=== PATIENT | male | born 1975 | race Two or more races ===

== ENCOUNTER 2025-06-26 19:50 | Inpatient (IN) | payer OTHER, SELFPAY ==
[2025-06-26] VITALS (11 sets, daily range): BP systolic 87–135; BP diastolic 46–73; PULSE 68–85; RESP 7–20; TEMP 36.6–36.8; O2SAT 93–100; BMI 24.3
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
--- NOTE | 2025-06-26 20:20 | XR_ITS ---
EXAMINATION: AP chest single view TECHNIQUE: AP portable upright chest single view Date and time: June 26, 2025, 2032 hours INDICATIONS: Shortness of breath today. FINDINGS: Normal heart size Moderate vascular congestion. Suspicious for subtle edema at the lung bases No lobar pneumonia Moderate osteopenia IMPRESSION: Suspicious for early heart failure
--- NOTE | 2025-06-26 20:20 | XR_ITS ---
Examination: CT cervical spine without contrast 2-D sagittal reconstructions 2-D coronal reconstructions 3-D reconstructions. Exam date and time: June 26, 2025, 2102 hours INDICATIONS: Neck pain today CTDI:vol (mGy) 13.46 DLP: (mGycm) 320 Technique: Multiple 2 mm axial sections of the cervical spine have been obtained. The coronal and sagittal reconstructions have been obtained. 3-D reconstructions have been obtained. Low dose protocols were performed. One or more of the following dose reduction techniques were used; automated exposure control, adjustment of the mA and/or KV according to patient size, use of iterative reconstruction technique. Findings: Axial sections demonstrate intact base of the skull. C1 exhibit satisfactory relationship to the odontoid. No acute cervical vertebral body fracture seen. Alignment posterior spinous processes satisfactory. 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 Multiple subcentimeter osteolytic lesions throughout all vertebral bodies, focal areas of osteopenia included in the differential, early osteolytic metastatic disease not excluded Recommend elective MRI cervical spine follow-up pre and postcontrast
--- NOTE | 2025-06-26 20:20 | XR_ITS ---
Examination: CT chest, without intravenous contrast. CT abdomen, without intravenous contrast. CT pelvis, without intravenous contrast. 2-D sagittal and coronal reconstructions. 3-D reconstructions. Date and time of exam: June 26, 2025, 2119 hours INDICATIONS: Altered mental status, chest and abdominal pain today CTDI vol (mgy) 9.83 DLP (MGycm) 697 Technique: Multiple CT images, 3.0 mm slice thickness, obtained chest, abdomen, pelvis, with the high-resolution 64 slice scanner.. Sagittal and coronal 2-D reconstructions are obtained. 3-D reconstructions Low dose protocols were performed. One or more of the following dose reduction techniques were used; automated exposure control, adjustment of the mA and/or KV according to patient size, use of iterative reconstruction technique. Findings: No thoracic aortic aneurysmal dilatation Pulmonary artery segments are not enlarged. No paratracheal tracheobronchial or bronchopulmonary adenopathy. 4 mm pulmonary nodule right upper lobe image 122 No pneumonia or pulmonary edema or pleural disease Old fracture 11th rib left posteriorly No visualized liver or splenic lesion Gallbladder is not visualized No pancreatic mass No renal or ureteral calculi Aorta normal size No bowel obstruction Normal appendix No diverticulitis Moderate air and stool in the rectum No prostatomegaly Urinary bladder wall shows prominent thickening Prominent osteopenia, chronic compression L1 IMPRESSION: No pneumonia or pulmonary edema 4 mm pulmonary nodule right upper lobe, with the studies baseline recommend 6-month follow-up CT chest without contrast No renal or ureteral calculi Normal appendix No bowel obstruction or diverticulitis Urinary bladder wall shows marked thickening, differential would include cystitis, bladder carcinoma not excluded, recommend urology consultation
--- NOTE | 2025-06-26 20:20 | XR_ITS ---
Examination: CT maxillofacial, without intravenous contrast. 2-D sagittal reconstructions. 3-D reconstructions. Date and time of exam: June 26, 2025, 2100 hours INDICATIONS: Altered mental status with left facial numbness today CTDI: vol (mGy): 13.7 DLP: (mGycm): 287 Technique: Multiple axial images of maxillofacial region, 3.0 mm slice thickness. 2-D sagittal and coronal reconstructions. 3-D reconstructions. Low dose protocols were performed. One or more of the following dose reduction techniques were used; automated exposure control, adjustment of the mA and/or KV according to patient size, use of iterative reconstruction technique. Findings: Frontal bone frontal sinuses intact Old right nasal bone fracture (Are intact No depression zygomatic arches Pterygoid plates maxilla and the mandible are intact Symmetrical oropharynx nasopharynx There is considerable patient motion which degrades scan image quality No soft tissue abscess IMPRESSION: No facial fracture No soft tissue abscess As clinically warranted, brain MRI follow-up would best assess for demyelinating disease, acute ischemic change.
--- NOTE | 2025-06-26 20:20 | EKG_ITS ---
[facility] Test Date: 2025-06-26 Pat Name: EJ MAURER Department: Room: - Gender: Male [employer]: : 1975 Requested By: Raza Lawler Order Number: [id number] Reading MD: Raza Lawler Measurements Intervals [place] Rate: 75 P: 58 CT: 166 QRS: -3 QRSD: 91 T: 43 QT: 426 QTc: 477 Interpretive Statements SINUS RHYTHM POSSIBLE RIGHT VENTRICULAR CONDUCTION DELAY [RSR (QR) IN V1/V2] No previous ECG available for comparison /store/S0/[id number].pdf
--- NOTE | 2025-06-26 20:20 | XR_ITS ---
Examination: CT brain head without contrast. 2-D sagittal coronal reconstructions Date and time of exam: June 26, 2025, 2058 hours INDICATIONS: Altered mental status headache today CTDI: vol (mGy): 48.1 DLP: (mGycm): 988 Technique: Multiple CT axial sections of the brain have been obtained, 5 mm slice thickness. Contrast has not been administered. 2-D sagittal, coronal reconstructions have been obtained Low dose protocols were performed. One or more of the following dose reduction techniques were used; automated exposure control, adjustment of the mA and/or KV according to patient size, use of iterative reconstruction technique. Findings: No significant ventricular enlargement. Intra-axial or extra-axial hemorrhage density is not seen. No mass effect or midline shift Basal cisterns are not remarkable. Fourth ventricle is midline. Cranial vault intact. Impression: Negative for acute hemorrhage, mass effect or midline shift Advise clinical correlation and follow-up accordingly
--- NOTE | 2025-06-26 20:30 | PC.NURSE ---
RECIEVED REPORT FROM VICKY HANSON RN AT 2020
[2025-06-26 20:39] LABS: Lactate (Lactic Acid) 2.5 mMol/L (0.4-2.0)
[2025-06-26 20:44] LABS: Base Excess 2 (-3-3); HCO3 26 mEq/L (20-26); Inspired Oxygen, FIO2 21 %; O2 Saturation 95 % (91-98); PCO2 37 mmHg (32.0-48.0); PO2 69 mmHg (83-108); pH, Arterial 7.45 (7.35-7.45)
[2025-06-26 20:44] LABS: Collection Type, Urine Clean Catch; Squamous Epithelial Cell,Urine 0 /hpf (0-5)
[2025-06-26 20:46] LABS: Allen Test Performed/OK; Puncture Site Right Radial
[2025-06-26] MEDS: ONDANSETRON INJ 2 MG/ML INJ 2 ML 4 MG IVP (20:47)
[2025-06-26 20:48] LABS: Basophils # (Auto) 0.0 Thou/mm3 (0.0-0.2); Basophils % (Auto) 0 % (0-2.5); Bilirubin,Urine Negative (Negative); Blood,Urine 1+ (Negative); Clarity,Urine Clear (Clear/Hazy); Color,Urine Colorless (Lt Yel-Yel); Culture Indicated,Urine Not Indicated; Eosinophils # (Auto) 0.0 Thou/mm3 (0.0-0.5); Eosinophils % (Auto) 0 % (0-10); Glucose, Urine Negative (Negative); Hemoglobin 13.1 g/dL (13.5-16.0); Ketones,Urine Negative (Negative); Leukocyte Esterase,Urine Negative (Negative); Mean Corpuscular Volume 79 fL (80-100); Nitrite,Urine Negative (Negative); Nucleated Red Blood Cell # 0.00 Thou/mm3 (0.00-0.00); Nucleated Red Blood Cell % 0 /100 WBC (0); PH,Urine 7.0 (5.0-7.0); Protein,Urine Negative (Neg - Trace); RBC,Urine 1 /hpf (0-3); Specific Gravity,Urine 1.003 (1.001-1.035); Urobilinogen,Urine Negative mg/dL (0.0-1.0); WBC,Urine < 1 /hpf (0-5)
[2025-06-26] MEDS: SODIUM CHLORIDE 0.9% 1000 ML 1,000 ML 999 ML IV (20:48)
[2025-06-26 21:02] LABS: Ammonia 20 uMol/L (11-32)
[2025-06-26 21:13] LABS: Hematocrit 34.1 % (41.0-53.0); Immature Granulocytes Auto 0.06 Thou/mm3 (0.00-0.00); Lymphocytes # (Auto) 0.5 Thou/mm3 (1.0-4.8); Lymphocytes % (Auto) 3 % (10-50); Mean Corpuscular HGB Conc 38.4 g/dl (31.0-37.0); Mean Corpuscular Hemoglobin 30.5 pg (25.0-35.0); Monocytes # (Auto) 1.2 Thou/mm3 (0.0-0.8); Monocytes % (Auto) 8 % (0-12); Neutrophils # (Auto) 13.6 Thou/mm3 (1.8-7.7); Neutrophils % (Auto) 88 % (37-80); Platelet Count 211 Thou/mm3 (140-440); RDW Standard Deviation 36.6 fL (35.1-43.9); Red Blood Count 4.30 Miln/mm3 (4.50-5.90); White Blood Count 15.4 Thou/mm3 (3.8-10.6)
[2025-06-26 21:19] LABS: Sed Rate (ESR) 1 mm/hr (0-20)
[2025-06-26] MEDS: levETIRAcetam INJ 100 MG/ML VIAL 5ML 2000 MG IVP (21:34)
[2025-06-26 21:54] LABS: Beta Hydroxybutyrate 0.2 mmol/L (<0.6)
[2025-06-26 22:07] LABS: Amphetamine/Methamp Scrn,U Negative (Negative); Barbiturate Screen,Urine Negative (Negative); Benzodiazepines Screen,Urine Negative (Negative); Benzoylecgonine Screen, Ur Negative (Negative); Fentanyl Screen,Urine Negative (Negative); Opiate Screen,Urine Negative (Negative); THC Screen,Urine Negative (Negative)
[2025-06-26 22:17] LABS: Glucose Estimated Average 85 mg/dL (80-131); Hemoglobin A1C 4.6 % Hgb (4.8-6.0)
[2025-06-26 22:36] LABS: Acetaminophen < 2.0 mcg/mL (10.0-20.0); Alanine Aminotransferase 20 U/L (10-49); Albumin, Serum 4.0 gm/dL (3.5-5.0); Albumin/Globulin Ratio 2.2 (1.2-2.2); Alcohol, Blood Medical < 3.0 mg/dL (0-10.0); Alkaline Phosphatase 67 U/L (46-116); Anion Gap 7 (7-16); Aspartate Amino Transferase 61 U/L (0-34); BUN/Creatinine Ratio 9 Ratio (12-20); Bilirubin,Direct 0.6 mg/dL (0.0-0.3); Bilirubin,Total 1.7 mg/dL (0.3-1.2); Blood Urea Nitrogen 6 mg/dL (9-23); Calcium 8.6 mg/dL (8.3-10.6); Calcium (Corrected) 8.6 mg/dL (8.5-10.1); Carbon Dioxide 24.2 mMol/L (20.0-31.0); Chloride 90 mMol/L (98-107); Creatinine (Component) 0.7 mg/dL (0.6-1.3); Estimated Creatinine Clearance 122.1 mL/min (>60); Globulin 1.8 gm/dL (2.3-3.5); Glucose 103 mg/dL (74-106); Lipase 20 U/L (12-53); Magnesium 1.6 mg/dL (1.6-2.6); Osmolality,Calculated 241 (275-295); Potassium 3.8 mMol/L (3.4-5.1); Procalcitonin 0.14 ng/ml (0.0-0.49); Salicylate < 3.0 mg/dL; Sodium 121 mMol/L (136-145); Thyroid Stimulating Hormone 1.14 uIU/mL (0.55-4.78); Total Protein 5.8 gm/dL (5.7-8.2); Troponin I < 0.020 ng/mL (0.0-0.045); eGFR > 60 See Note
[2025-06-26 22:55] LABS: B-Type Natriuretic Peptide 303 pg/mL (0-100)
[2025-06-26 23:14] LABS: C-Reactive Protein < 0.5 mg/dL (0.0-0.9); Creatine Kinase 2249 U/L (34-171)
[2025-06-26 23:41] LABS: Reflex Lactate? Y
[2025-06-27] VITALS (54 sets, daily range): BP systolic 72–136; BP diastolic 43–102; PULSE 56–181; RESP 3–96; TEMP 36.6–37.3; O2SAT 75–100; BMI 24.3; BMI 24.2
[2025-06-27 00:23] LABS: Lactic Acid, 3 HR 1.7 mMol/L (0.4-2.0)
[2025-06-27] MEDS: SODIUM CHLORIDE 0.9% 1000 ML 1,000 ML 999 ML IV (00:30)
[2025-06-27 00:52] LABS: Albumin, Serum 4.1 gm/dL (3.5-5.0); Anion Gap 9 (7-16); BUN/Creatinine Ratio 9 Ratio (12-20); Blood Urea Nitrogen 6 mg/dL (9-23); Calcium 8.9 mg/dL (8.3-10.6); Calcium (Corrected) 8.9 mg/dL (8.5-10.1); Carbon Dioxide 23.1 mMol/L (20.0-31.0); Chloride 97 mMol/L (98-107); Creatinine (Component) 0.7 mg/dL (0.6-1.3); Estimated Creatinine Clearance 122.1 mL/min (>60); Glucose 97 mg/dL (74-106); Osmolality,Calculated 256 (275-295); Phosphorous 3.9 mg/dL (2.4-5.1); Potassium 4.3 mMol/L (3.4-5.1); Sodium 129 mMol/L (136-145); eGFR > 60 See Note
[2025-06-27] MEDS: DESMOPRESSIN ACETATE 4 MCG/ML VIAL IV (01:00)
--- NOTE | 2025-06-27 01:22 | ESCONSULT_ITS ---
HPI Data of Consult Requesting Physician: Radha Miranda MD Admitting Provider: Radha Miranda MD Attending Provider: Radha Miranda MD Primary Care Provider: Palak Mak[facility] Consult Narrative Reason for consult: AMS and seizures History of present illness: This patient is a 49-year-old male with past medical history of schizophrenia on fluphenazine was brought in by EMS from detention( [facility]) on 06/26/25 with chief complaint of altered mental status with drooling and urine incontinence with flaccid weakness in upper extremities and post ictal confusion. His baseline AO x 3. Per RN who works in detention reported that patient fell and they found water on floor. Patient was not responding to painful stimuli was exhibiting right and left upper extremity flaccid weakness associated with drooling and urine incontinence. He was nonverbal and appeared in postictal confusion. Initially, In detention evaluated and was concern on catatonia however patient continued to remain in postictal confusion therefore he he was brought in to the ED via EMS. RN reported that patient is in single cell due to his mental health issue i.e schizophrenia. Patient takes only 1 medication prescribed by his psychiatrist . Dr Villavicencio. She stated that patient did not had any history of seizures and this is her first episode as well.He had no recent fever or infection in past 48 hours. GCS on arrival was 8. Vitals showed BP 123/73 Pulse 80, oxygen saturation 97% on nasal cannula and blood sugar 117 mg/dL. ED course: In the ED, patient's blood pressure was 129/73, pulse 85, RR 15, afebrile and saturating well on room air. Labs revealed mild leukocytosis white count 15.4, hemoglobin 13.1. Platelet count stable. ESR unremarkable. ABGs showed pH 7.45, pCO2 37, pO2 69. Chemistry panel showed serum sodium 121--> 129, potassium 4.3, chloride 97. BUN 6 and creatinine 0.7. Blood glucose 97. A1c 4.6. Lactic acid 2.5. Magnesium 1.6. T. bili 1.7. Regular Abdi 0.6. AST 61. Total creatinine kinase 2249. CRP normal. BNP 303. Lipase was negative. Procalcitonin negative. TSH unremarkable. Urine showed pH 7.0, colorless with blood 1+. U tox was negative. Tylenol level negative. Blood alcohol negative. EKG showed sinus rhythm with no acute ST-T changes. QTc 477.-Head CT showed no acute changes. Face CT showed no acute fracture.Chest x-ray showed moderate vascular congestion with edema with edema in lung bases. Cervical spine CT showed osteolytic lesions throughout all vertebrae bodies, focal area of osteopenia. Recommended MRI cervical spine. Chest CT abdomen pelvis showed 4 mm pulmonary nodule right upper lobe. Urinary bladder wall marked thickening with differentials cystitis and bladder cancer not excluded. Patient received 2 L bolus NS, Zofran 4 mg x 1 and Keppra 2000 mg x 1 in the ED. At time of hospitalist team evaluation in ED patient was noted to have significant urine output of 6 L, stat repeat BMP was ordered and patient was given 4 mcg of desmopressin x 1, the patient was upgraded to ICU at that time, Repeat sodium was noted to be 129. During my assesment patient's GCS was 11. 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 HEENT: NC, AT. dry mucus membrane. EOMI, clear conjunctiva, oropharynx dry. NECK: Supple without lymphadenopathy. No stiffness or restricted ROM. HEART: Regular rate and regular rhythm, normal S1/S2, no m/r/g LUNGS: CTAB, moving air well. No crackles or wheezes are heard. ABDOMEN: Soft, nontender, nondistended with good bowel sounds heard. BACK: No CVAT, no obvious deformity. EXTREMITIES: Without cyanosis, clubbing or edema.leg cuff in lower ext. NEUROLOGICAL: Grossly nonfocal. GCS 11. confused with spontaneous eye opening, confused and flexes to pain. CN not formally tested but appear grossly intact. Skin: Warm and dry without any rash. Psych: Unable to assess due to patients neurological condition Results Labs 06/28/25 04:49 06/29/25 01:12 Labs: Short CBC 06/26/25 Range/Units 20:10 WBC 15.4 H (3.8-10.6) Thou/mm3 Hgb 13.1 L (13.5-16.0) g/dL Hct 34.1 L (41.0-53.0) % Plt Count 211 (140-440) Thou/mm3 BMP 06/26/25 06/27/25 20:10 00:19 Sodium 121 L 129 L Potassium 3.8 4.3 D Chloride 90 L 97 L Carbon Dioxide 24.2 23.1 BUN 6 L 6 L Creatinine 0.7 0.7 Glucose 103 97 Calcium 8.6 8.9 Cardiac Enzymes 06/26/25 Range/Units 20:10 Total Creatine Kinase 2249 H (34-171) U/L Troponin I < 0.020 (0.0-0.045) ng/mL Liver Function 06/26/25 06/27/25 Range/Units 20:10 00:19 Total Bilirubin 1.7 H (0.3-1.2) mg/dL Direct Bilirubin 0.6 H (0.0-0.3) mg/dL AST 61 H (0-34) U/L ALT 20 (10-49) U/L Alkaline Phosphatase 67 (46-116) U/L Albumin 4.0 4.1 (3.5-5.0) gm/dL Urine 06/26/25 Range/Units 20:10 Urine Color Colorless A (Lt Yel-Yel) Urine Clarity Clear (Clear/Hazy) Urine pH 7.0 (5.0-7.0) Ur Specific Purchase 1.003 (1.001-1.035) Urine Protein Negative (Neg - Trace) Urine Glucose (UA) Negative (Negative) ABG Interpretation ABG results: 06/26/25 20:36 ABG pH 7.45 ABG pCO2 37 ABG pO2 69 L ABG HCO3 26 ABG O2 Saturation 95 ABG Base Excess 2 Quality Measures Quality Measures VTE prophylaxis (Heparin SC ) Medications Home Medications and Allergies Home Medications ?Medication ?Instructions ?Recorded ?Confirmed ?Type fluphenazine HCl 5 mg tablet 5 mg PO BID 06/27/2506/14 History Allergies Allergy/AdvReac Type Severity Reaction Status Date / Time Penicillins Allergy Verified 06/26/25 20:30 Visit Medications Acetaminophen (Acetaminophen 325 Mg Tablet) 650 mg PO Q6H PRN PRN Reason: Fever >100.4 or pain 1-3 Stop: 07/26/25 23:58 Docusate Sodium (Docusate Sod 100 Mg Capsule) 100 mg PO QDAY RIKKI; Protocol Stop: 07/27/25 08:59 Heparin Sodium (Porcine) (Heparin Sod Inj 5000 Unit/Ml Vial) 5,000 unit SC Q12HR RIKKI Stop: 07/11/25 08:59 Sodium Chloride (Ns) 1,000 mls @ 999 mls/hr IV .Q1H1M ONE Stop: 06/27/25 01:24 Last Infusion: 06/27/25 01:08 Dose: 0 mls/hr Levetiracetam (Levetiracetam Inj 100 Mg/Ml Vial 5ml) 1,000 mg IVP Q12HR RIKKI Stop: 07/27/25 08:59 Pantoprazole Sodium (Pantoprazole 40 Mg Tablet) 40 mg PO QDAY [facility] Stop: 07/27/25 08:59 Discontinued Medications Desmopressin Acetate (Desmopressin Acet Inj 4 Mcg/Ml Vial 10ml) 4 mcg IV X1 ONE Stop: 06/27/25 00:25 Last Admin: 06/27/25 00:57 Dose: Not Given Desmopressin Acetate (Desmopressin Acetate 4 Mcg/Ml Vial) 4 mcg IV X1 ONE Stop: 06/27/25 00:46 Desmopressin Acetate (Desmopressin Acetate 4 Mcg/Ml Vial) 4 mcg IV X1 ONE Stop: 06/27/25 01:01 Last Admin: 06/27/25 01:00 Dose: 4 mcg Sodium Chloride (Ns) 1,000 mls @ 999 mls/hr IV .Q1H1M ONE Stop: 06/26/25 21:19 Last Infusion: 06/26/25 22:30 Dose: Infused Levetiracetam (Levetiracetam Inj 100 Mg/Ml Vial 5ml) 2,000 mg IVP X1 ONE Stop: 06/26/25 21:08 Last Admin: 06/26/25 21:34 Dose: 2,000 mg Ondansetron HCl (Ondansetron Inj 2 Mg/Ml Inj 2 Ml) 4 mg IVP X1 ONE; Protocol Stop: 06/26/25 20:20 Last Admin: 06/26/25 20:47 Dose: 4 mg Assessment & Plan Plan This patient is a 49-year-old male with past medical history of schizophrenia on fluphenazine was brought in by EMS from detention on 06/26/25 with chief complaint of altered mental status with drooling and urine incontinence with flaccid weakness in upper extremities and post ictal confusion. Baseline AO x 3. 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 Per RN in detention patient had drooling and upper extremity flaccid weakness +drooling with bowel and bladder incontinence.Patient fell and water was found on the floor. Patient remained in postictal confusion and route to the ED. GCS 8 on arrival improved to 11. Dx -Head CT showed no acute changes. -Face CT showed no acute fracture. -Chest x-ray showed moderate vascular congestion with edema with edema in lung bases. -Cervical spine CT showed osteolytic lesions throughout all vertebrae bodies, focal area of osteopenia. Recommended MRI cervical spine. -EKG showed sinus rhythm with QTc 477. No acute ST-T changes. -Blood glucose 121. U tox was negative. Serum sodium 121 on admission. -ABG showed pH 7.45, pCO2 37, pO2 69. FiO2 21%. Rx -Patient received 2 g Keppra IV x 1 and 2 L bolus of NS x 1 in the ED. - Continue Keppra 1 g IV twice daily to prevent any further seizures - Ativan 4 mg every 15 minutes as needed for breakthrough seizure -Due to rapid correction of sodium, started on D5W at 100 cc and desmopressin 4 mcg given x 1 -Seizure precautions and aspiration precaution -Seizure could be related to electrolyte abn(Hyponatremia) Treatment Review: - Additional desmopressin 2mcg given and inc D5W @ 170 cc/h - Monitoring sodium Q2 hourly - Neurochecks every 4 hourly Cardiovascular #Hypotension due to hypovolemia DDx: Dehydration due to excessive osmotic diuresis/Fluid loss possible loss of ADH response Dx -Vitals: BP dropped from Systolic 123 to 90s. MAP dropped to 56 two times. -Patient had a urine output of more than 8 L within few hours since admission. -Examination showed dry mucous membrane. Warm peripheries. no delayed capillary refill. No signs of infection. Rx -Initially patient received 2 L NS x 1 in the ED. -Start D5W at 100 cc due to rapid overcorrection of sodium and fluid loss -Administer desmopressin to counteract rapid correction of sodium Treatment Review: - Monitoring vitals and Urine output Respiratory #Pulm Nodule, incidental finding per CT Dx -Chest CT abdomen pelvis showed 4 mm pulmonary nodule right upper lobe. Urinary bladder wall marked thickening with differentials cystitis and bladder cancer not excluded. Rx -no acute management -Would need outpatient F/u for monitoring the size of nodule GI #Mild Hepatitis and Elevated T. bili Diagnostic Test: -AST 61 ,T Filiberto: 1.7 D Filiberto: 0.6 -CT abdomen did not show acute issue with Gall bladder. -Etoh negative . acetaminophen negative Treatment Plan: -No acute intervention -Trend LFTs -F/U with Hep panel and US gall bladder Renal #Acute symptomatic hyponatremia DDx:psychogenic Polydipisia -Patient presented from detention with c/c AMS and seizure with postictal confusion. Baseline mentation is AO x 3. No history of previous seizures. -Patient only takes Prolixin 5 mg twice daily for schizophrenia. Patient follows up with Dr. Villavicencio who is patient's psychiatrist. -No recent changes in the medication. No non-compliance reported. Prolixin is linked with SIADH not DI. Dx: - He was found to have sodium of 121 with serum osmolarity 241 on admission. -Patient received 2 L bolus of NS x 1 in the ED. -Rapidly corrected sodium to 129. Rx -Due to rapid correction, desmopressin 4 mcg given x 1, desmopressin 2mcg x1 later around 4 am and started D5W at 100 cc/h. -Ordered desmopressin 2 mcg q6h rikki starting @ 7 am to bring goal of sodium to 126 in 24 h today at 20:00 -Urine output> 8 L diluted urine -Nephrology consulted, appreciate recommendations RRx -Slow overcorrection needed as well Goal of sodium 126 meq for today around -continue with desmopressin 2 mcg q6h until we reach at goal -We can hold D5W once sodium reach at correction goal of sodium at 126 meq - Sodium checks Q2 hourly - Goal of sodium correction 4-6 meq in first 24 h for hyponatremia - Urine electrolytes showed Na<15, Cl <20, K<10, Cr<20 #Rhabdomyolysis DDx: Seizures Dx - Creatinine kinase 2249 Rx -IV fluid resuscitation RRx -AM CK levels #Lactic acidosis type A DDx: Hypotension due to volume loss DI Dx -Lactic acid 2.5 Rx -IV fluid resuscitation RRx -Trend lactic acid Q3 hourly Heme #Microcytic anemia Dx -Hemoglobin 13.1, MCV 79 Rx -No acute management -PRBC hemoglobin drops below 7 -No signs of active bleeding RRx - Daily labs #Leukocytosis, reactive Dx -WBC 15.4 Rx -No signs of acute infection Treatment review -Daily labs Endo #Concern for Diabetes insipidus Ddx: psychogenic POlydipsia - Patient presented with witnessed seizure and altered mental status. Was found to have symptomatic hyponatremia. - Patient had been having polyuria with output more than 7 L with diluted urine since admission. Dx - UA showed colorless pH 7.0, specific gravity 1.003. Blood +1. U tox was negative. Rx -Desmopressin 4 mcg given x 1 then desmopressin 2 mcg at 4 am -Desmporessin 2 mcg q6hr starting @ 7AM -Slow overcorrection needed as well Goal of sodium 126 meq -We can hold D5W once sodium reach at correction goal of sodium at 126 meq for today RRx -Sodium checks q2h - Closely monitor urine output MSK #Osteolytic lesions over vertebral bodies per CT Dx -Cervical spine CT showed osteolytic lesions throughout all vertebrae bodies, focal area of osteopenia. Advanced disc narrowing C4-C5, fusion C5-C6 -Serum corrected calcium 8.9 Rx -No active intervention -Consider MRI cervical spine once acute issues resolved ID No active issue ICU Health Maintenance DVT prophylaxis: Heparin SC GI prophylaxis: Protonix Diet: NPO Taylor: PLACED Lines: Peripherals Vent: none CODE STATUS: Full code Reason of hospitalization: Patient is upgraded to ICU for management of symptomatic Hyponatremia due to psychogenic polydipsia with seizures Patient discussed with my attending, Dr. Ruben johnson MD, PGY 3 Attending Provider Attestation/Addendum After examination of the patient and review of the clinical data I feel that this patient needs admission to the hospital for further treatment/evaluation. TOTAL CC TIME: 75 MIN TOTAL TIME: 75 Minutes of direct medical management and planning of care. I Radha Miranda MD, attest that I was physically present for iyer portions of evaluation, and examined patient, labs and imagings and plan of care were discussed with IM residents team, and I agree with the findings and plans documented above.
[2025-06-27] MEDS: DEXTROSE 5%-WATER 1,000 ML 100 ML IV ×3 (01:57→19:20)
[2025-06-27] MEDS: Magnesium Sulfate 2 GM Ivpb 2 GM/50 ML BAG IV (03:16)
[2025-06-27 03:17] LABS: Sodium 133 mMol/L (136-145)
[2025-06-27 03:22] LABS: Chloride,Urine Random < 20.0 mMol/L (55.0-125.0); Creatinine,Random Urine < 13 mg/dL (30-125); Potassium,Urine Random < 10 mMol/L (12-62); Sodium,Urine Random < 15.0 mMol/L (20.0-110.0)
[2025-06-27 03:26] LABS: Influenza A Ag Negative; Influenza B Ag Negative
--- NOTE | 2025-06-27 03:35 | PD.RESHP ---
Documentation for date of: 06/27/25 HPI History of Present Illness History of present illness: This patient is a 49-year-old male with past medical history of schizophrenia on fluphenazine was brought in by EMS from group home( [facility] skilled [facility]) on 06/26/25 with chief complaint of altered mental status with drooling and urine incontinence with flaccid weakness in upper extremities and post ictal confusion. Admitted for hyponatremia work up. ED Course Summary Vitals: BP 129/73 HR 85 RR 15 T 98F O2 98%RA Labs: WBC 15 HGB 13 ABG wnl other than pO2 69, Na 121, Cl- 90, osm: 241 Lactic acid 2.5, tbili 1.7, CK 2249 UA wnl UDS negative Imaging: EKG wnl QTC prolonged. head CT unremarkable, Face CT unremarkable, CTAP no PNA or pulm edema 4mm RUL, urinary bladder wall thickening CXR early HF, CT spine osteolytic lesions Treatment: Keppra NaCl 1L, zofran Consults and why: Dr. Al Jacome fro management of hyponatremia His baseline AO x 3. Per RN who works in group home reported that patient fell and they found water on floor. Patient was not responding to painful stimuli was exhibiting right and left upper extremity flaccid weakness associated with drooling and urine incontinence. He was nonverbal and appeared in postictal confusion. Initially, In group home evaluated and was concern on catatonia however patient continued to remain in postictal confusion therefore he he was brought in to the ED via EMS. RN reported that patient is in single cell due to his mental health issue i.e schizophrenia. Patient takes only 1 medication (fluphenazine) prescribed by his psychiatrist can be contacted on [phone] Dr. Villavicencio. She stated that patient did not had any history of seizures and this is her first episode as well.He had no recent fever or infection in past 48 hours. GCS on arrival was 8. Vitals showed BP 123/73 Pulse 80, oxygen saturation 97% on nasal cannula and blood sugar 117 mg/dL. Upon initial exam patient was unresponsive GCS 10 protecting his airways (eyes open spontaneuosly, responds to pain, and making incomprehensible speech). His rhythmic shaking was only intermittent. He urinated 4L on arrival and then another 2L while in the ED. ICU was called for admission and Q2h sodium checks for help managing slow titration of sodium levels. Code: Full Insulin: Unable to obtain Medical Hx: Schizophrenia Medications: fluphenazine Allergies: penicillin Surgical history: Unable to obtain Fhx: Noncontributory Living: in Senior Living for violating parole Alcohol: Unable to obtain Cigarettes/tobacco: Unable to obtain Recreational drugs: Unable to obtain Patient admitted for: ICU management for hyponatremia All 12 systems reviewed and were negative except otherwise stated in HPI. Exam Vital Signs Temp Pulse Resp BP Pulse Ox O2 Del Method 97.8 F 85 18 119/83 97 Room Air 06/27/25 00:14 06/27/25 02:19 06/27/25 02:19 06/27/25 02:19 06/27/25 02:19 06/27/25 02:19 Narrative Exam GENERAL APPEARANCE: Confused adult male in no acute distress. HEENT: NC, AT. dry mucus membrane. EOMI, clear conjunctiva, oropharynx dry. NECK: Supple without lymphadenopathy. No stiffness or restricted ROM. HEART: Regular rate and regular rhythm, normal S1/S2, no m/r/g LUNGS: CTAB, moving air well. No crackles or wheezes are heard. ABDOMEN: Soft, nontender, nondistended with good bowel sounds heard. BACK: No CVAT, no obvious deformity. EXTREMITIES: Without cyanosis, clubbing or edema.leg cuff in lower ext. NEUROLOGICAL: Grossly nonfocal. GCS 11. confused with spontaneous eye opening, confused and flexes to pain. CN not formally tested but appear grossly intact. Skin: Warm and dry without any rash. Psych: Unable to assess due to patients neurological condition Results: Labs 06/28/25 04:49 06/29/25 01:12 Labs: Short CBC 06/26/25 Range/Units 20:10 WBC 15.4 H (3.8-10.6) Thou/mm3 Hgb 13.1 L (13.5-16.0) g/dL Hct 34.1 L (41.0-53.0) % Plt Count 211 (140-440) Thou/mm3 BMP 06/26/25 06/27/25 06/27/25 20:10 00:19 02:54 Sodium 121 L 129 L 133 L Potassium 3.8 4.3 D Chloride 90 L 97 L Carbon Dioxide 24.2 23.1 BUN 6 L 6 L Creatinine 0.7 0.7 Glucose 103 97 Calcium 8.6 8.9 Cardiac Enzymes 06/26/25 Range/Units 20:10 Total Creatine Kinase 2249 H (34-171) U/L Troponin I < 0.020 (0.0-0.045) ng/mL Liver Function 06/26/25 06/27/25 Range/Units 20:10 00:19 Total Bilirubin 1.7 H (0.3-1.2) mg/dL Direct Bilirubin 0.6 H (0.0-0.3) mg/dL AST 61 H (0-34) U/L ALT 20 (10-49) U/L Alkaline Phosphatase 67 (46-116) U/L Albumin 4.0 4.1 (3.5-5.0) gm/dL Urine 06/26/25 Range/Units 20:10 Urine Color Colorless A (Lt Yel-Yel) Urine Clarity Clear (Clear/Hazy) Urine pH 7.0 (5.0-7.0) Ur Specific [place] 1.003 (1.001-1.035) Urine Protein Negative (Neg - Trace) Urine Glucose (UA) Negative (Negative) ABG Interpretation ABG results: 06/26/25 20:36 ABG pH 7.45 ABG pCO2 37 ABG pO2 69 L ABG HCO3 26 ABG O2 Saturation 95 ABG Base Excess 2 Quality Measures Quality Measures VTE prophylaxis (Heparin SC ) Medications Home Medications and Allergies Home Medications ?Medication ?Instructions ?Recorded ?Confirmed ?Type fluphenazine HCl 5 mg tablet 5 mg PO BID 06/27/25 06/27/25 History Allergies Allergy/AdvReac Type Severity Reaction Status Date / Time Penicillins Allergy Verified 06/26/25 20:30 Visit Medications Acetaminophen (Acetaminophen 325 Mg Tablet) 650 mg PO Q6H PRN PRN Reason: Fever >100.4 or pain 1-3 Stop: 07/26/25 23:58 Docusate Sodium (Docusate Sod 100 Mg Capsule) 100 mg PO QDAY [facility]; Protocol Stop: 07/27/25 08:59 Heparin Sodium (Porcine) (Heparin Sod Inj 5000 Unit/Ml Vial) 5,000 unit SC Q12HR [facility] Stop: 07/11/25 08:59 Magnesium Sulfate (Magnesium Sulfate Ivpb) 2 gm in 50 mls @ 25 mls/hr IV X1 ONE Stop: 06/27/25 05:08 Last Admin: 06/27/25 03:16 Dose: 25 mls/hr Dextrose (D5w) 1,000 mls @ 160 mls/hr IV .Q6H15M [facility] Stop: 07/27/25 03:29 Levetiracetam (Levetiracetam Inj 100 Mg/Ml Vial 5ml) 1,000 mg IVP Q12HR [facility] Stop: 07/27/25 08:59 Lorazepam (Lorazepam 2 Mg/Ml Vial) 4 mg IVP Q15MIN PRN PRN Reason: Breakthrough seizure Stop: 07/02/25 01:23 Pantoprazole Sodium (Pantoprazole 40 Mg Tablet) 40 mg PO QDAY [facility] Stop: 07/27/25 08:59 Discontinued Medications Desmopressin Acetate (Desmopressin Acet Inj 4 Mcg/Ml Vial 10ml) 4 mcg IV X1 ONE Stop: 06/27/25 00:25 Last Admin: 06/27/25 00:57 Dose: Not Given Desmopressin Acetate (Desmopressin Acetate 4 Mcg/Ml Vial) 4 mcg IV X1 ONE Stop: 06/27/25 00:46 Desmopressin Acetate (Desmopressin Acetate 4 Mcg/Ml Vial) 4 mcg IV X1 ONE Stop: 06/27/25 01:01 Last Admin: 06/27/25 01:00 Dose: 4 mcg Sodium Chloride (Ns) 1,000 mls @ 999 mls/hr IV .Q1H1M ONE Stop: 06/26/25 21:19 Last Infusion: 06/26/25 22:30 Dose: Infused Sodium Chloride (Ns) 1,000 mls @ 999 mls/hr IV .Q1H1M ONE Stop: 06/27/25 01:24 Last Infusion: 06/27/25 01:08 Dose: 0 mls/hr Dextrose (D5w) 1,000 mls @ 100 mls/hr IV .Q10H [facility] Stop: 07/27/25 01:44 Last Admin: 06/27/25 01:57 Dose: 100 mls/hr Levetiracetam (Levetiracetam Inj 100 Mg/Ml Vial 5ml) 2,000 mg IVP X1 ONE Stop: 06/26/25 21:08 Last Admin: 06/26/25 21:34 Dose: 2,000 mg Ondansetron HCl (Ondansetron Inj 2 Mg/Ml Inj 2 Ml) 4 mg IVP X1 ONE; Protocol Stop: 06/26/25 20:20 Last Admin: 06/26/25 20:47 Dose: 4 mg Assessment & Plan Plan This patient is a 49-year-old male with past medical history of schizophrenia on fluphenazine was brought in by EMS from group home on 06/26/25 with chief complaint of altered mental status with drooling and urine incontinence with flaccid weakness in upper extremities and post ictal confusion. Baseline AO x 3. Upgrade to ICU for management of symptomatic hyponatremia with seizures and possible diabetes insipidus. #Acute encephalopathy #Seizure r/o #Hyponatremia DDx: Electrolye abn: Hyponatremia, Postictal confusion, dehydration due to fluid loss -Patient presented with altered mental status from group home. Per RN in group home patient had drooling and upper extremity flaccid weakness +drooling with bowel and bladder incontinence.Patient fell and water was found on the floor. Patient remained in postictal confusion and route to the ED. GCS 8 on arrival improved to 11. Head CT showed no acute changes. Face CT showed no acute fracture. Chest x-ray showed moderate vascular congestion with edema with edema in lung bases. Cervical spine CT showed osteolytic lesions throughout all vertebrae bodies, focal area of osteopenia. Recommended MRI cervical spine. EKG showed sinus rhythm with QTc 477. No acute ST-T changes. Blood glucose 121. U tox was negative. Serum sodium 121 on admission. -ABG showed pH 7.45, pCO2 37, pO2 69. FiO2 21%. Plan: -Patient received 2 g Keppra IV x 1 and 2 L bolus of NS x 1 in the ED. - Continue Keppra 1 g IV twice daily to prevent any further seizures - Ativan 4 mg every 15 minutes as needed for breakthrough seizure -Due to rapid correction of sodium, started on D5W at 100 cc and desmopressin 4 mcg given x 1 -Seizure precautions and aspiration precaution -Seizure could be related to electrolyte abn(Hyponatremia) - Monitoring sodium Q2 hourly - Neurochecks every 4 hourly #Pulm Nodule, incidental finding per CT Dx Chest CT abdomen pelvis showed 4 mm pulmonary nodule right upper lobe. Urinary bladder wall marked thickening with differentials cystitis and bladder cancer not excluded. Plan: -no acute management -Would need outpatient F/u for monitoring the size of nodule #Mild Hepatitis and Elevated T. bili Diagnostic Test: -AST 61 ,T Filiberto: 1.7 D Filiberto: 0.6 -CT abdomen did not show acute issue with Gall bladder. -Etoh negative . 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 Recommended MRI cervical spine. Advanced disc narrowing C4-C5, fusion C5-C6 -Serum corrected calcium 8.9 Plan: -No active intervention -Consider MRI cervical spine once acute issues resolved Health Maintenance: Code status: Full DVT prophylaxis: Heparin SQ GI prophylaxis: Protonix Diet: NPO Taylor: Yes Lines: PIV Supplemental O2: None Disposition: Patient is upgraded to ICU for management of symptomatic Hyponatremia with seizures and possible diabetes inspidus. Patient seen and reviewed with attending Dr. Miranda. Note written by Luis Diaz MD PGY-1 Attending Provider Attestation/Addendum After examination of the patient and review of the clinical data I feel that this patient needs admission to the hospital for further treatment/evaluation. Plan of care discussed with patient and is in agreement. I Radha Miranda MD, attest that I was physically present for iyer portions of evaluation, and examined patient, labs and imagings and plan of care were discussed with IM residents team, and I agree with the findings and plans documented above.
[2025-06-27 03:52] LABS: Lactate (Lactic Acid) 1.4 mMol/L (0.4-2.0)
[2025-06-27] MEDS: DEXTROSE 5%-WATER 1,000 ML 170 ML IV (04:00)
[2025-06-27 04:04] LABS: Basophils # (Auto) 0.0 Thou/mm3 (0.0-0.2); Basophils % (Auto) 0 % (0-2.5); Eosinophils # (Auto) 0.0 Thou/mm3 (0.0-0.5); Eosinophils % (Auto) 0 % (0-10); Hematocrit 32.5 % (41.0-53.0); Hemoglobin 12.0 g/dL (13.5-16.0); Immature Granulocytes Auto 0.03 Thou/mm3 (0.00-0.00); Lymphocytes # (Auto) 0.6 Thou/mm3 (1.0-4.8); Lymphocytes % (Auto) 6 % (10-50); Mean Corpuscular HGB Conc 36.9 g/dl (31.0-37.0); Mean Corpuscular Hemoglobin 30.3 pg (25.0-35.0); Mean Corpuscular Volume 82 fL (80-100); Monocytes # (Auto) 1.1 Thou/mm3 (0.0-0.8); Monocytes % (Auto) 9 % (0-12); Neutrophils # (Auto) 9.9 Thou/mm3 (1.8-7.7); Neutrophils % (Auto) 85 % (37-80); Nucleated Red Blood Cell # 0.00 Thou/mm3 (0.00-0.00); Nucleated Red Blood Cell % 0 /100 WBC (0); Platelet Count 207 Thou/mm3 (140-440); RDW Standard Deviation 38.7 fL (35.1-43.9); Red Blood Count 3.96 Miln/mm3 (4.50-5.90); White Blood Count 11.7 Thou/mm3 (3.8-10.6)
[2025-06-27] MEDS: DESMOPRESSIN ACETATE 4 MCG/ML VIAL 2 MCG IV (04:08)
[2025-06-27 04:39] LABS: Alanine Aminotransferase 25 U/L (10-49); Albumin, Serum 4.1 gm/dL (3.5-5.0); Albumin/Globulin Ratio 2.2 (1.2-2.2); Alkaline Phosphatase 68 U/L (46-116); Anion Gap 8 (7-16); Aspartate Amino Transferase 66 U/L (0-34); BUN/Creatinine Ratio 8 Ratio (12-20); Bilirubin,Total 1.3 mg/dL (0.3-1.2); Blood Urea Nitrogen 6 mg/dL (9-23); Calcium 9.0 mg/dL (8.3-10.6); Calcium (Corrected) 9.0 mg/dL (8.5-10.1); Carbon Dioxide 25.2 mMol/L (20.0-31.0); Chloride 99 mMol/L (98-107); Creatinine (Component) 0.8 mg/dL (0.6-1.3); Estimated Creatinine Clearance 106.9 mL/min (>60); Globulin 1.9 gm/dL (2.3-3.5); Glucose 92 mg/dL (74-106); Magnesium 2.2 mg/dL (1.6-2.6); Osmolality,Calculated 262 (275-295); Phosphorous 3.3 mg/dL (2.4-5.1); Potassium 4.0 mMol/L (3.4-5.1); Sodium 132 mMol/L (136-145); Thyroid Stimulating Hormone 1.48 uIU/mL (0.55-4.78); Total Protein 6.0 gm/dL (5.7-8.2); eGFR > 60 See Note
[2025-06-27] MEDS: DEXTROSE 5%-WATER 1,000 ML 200 ML IV ×2 (05:05→08:41)
[2025-06-27 05:13] LABS: Lactate (Lactic Acid) 1.4 mMol/L (0.4-2.0)
[2025-06-27 05:35] LABS: Sodium 131 mMol/L (136-145)
[2025-06-27 06:46] LABS: Creatine Kinase 3466 U/L (34-171)
[2025-06-27 06:56] LABS: Hepatitis A Antibody IgM Non Reactive (Non React); Hepatitis B Core Antibody IgM Non Reactive (Non React); Hepatitis B Surface Antigen Non Reactive (Non React); Hepatitis C Antibody Non Reactive (Non React)
[2025-06-27 07:22] LABS: Sodium 130 mMol/L (136-145)
[2025-06-27] MEDS: levETIRAcetam INJ 100 MG/ML VIAL 5ML 1000 MG IVP ×2 (08:32→20:26)
[2025-06-27] MEDS: HEPARIN SOD INJ 5000 UNIT/ML VIAL SC ×2 (08:33→20:27)
[2025-06-27] MEDS: DEXTROSE 5%-WATER 1,000 ML 70 ML IV (08:46)
[2025-06-27 09:57] LABS: Alanine Aminotransferase 23 U/L (10-49); Albumin, Serum 4.2 gm/dL (3.5-5.0); Albumin/Globulin Ratio 2.2 (1.2-2.2); Alkaline Phosphatase 68 U/L (46-116); Anion Gap 8 (7-16); Aspartate Amino Transferase 96 U/L (0-34); BUN/Creatinine Ratio 6 Ratio (12-20); Bilirubin,Total 1.1 mg/dL (0.3-1.2); Blood Urea Nitrogen 5 mg/dL (9-23); Calcium 8.7 mg/dL (8.3-10.6); Calcium (Corrected) 8.7 mg/dL (8.5-10.1); Carbon Dioxide 24.6 mMol/L (20.0-31.0); Chloride 96 mMol/L (98-107); Creatinine (Component) 0.8 mg/dL (0.6-1.3); Estimated Creatinine Clearance 106.9 mL/min (>60); Globulin 1.9 gm/dL (2.3-3.5); Glucose 87 mg/dL (74-106); Osmolality,Calculated 255 (275-295); Potassium 3.6 mMol/L (3.4-5.1); Sodium 129 mMol/L (136-145); Total Protein 6.1 gm/dL (5.7-8.2); eGFR > 60 See Note
--- NOTE | 2025-06-27 09:57 | PC.SS ---
Patient is in ICU and was admitted for acute encephalopathy. Patient has hx: Schizophrenia. Patient is from [facility] and will return upon discharge. Officer at bedside. [facility] will provide transport. All communication for medical decisions goes through [facility]. [facility]: [phone] machine sole leveler [phone] coordinator rounding: Monitor sodium levels. Neuro checks. Patient more responsive today.
--- NOTE | 2025-06-27 09:59 | PD.RESCONSUL ---
HPI Data of Consult Consult date: 06/27/25 Requesting Physician: Radha Miranda MD Admitting Provider: Radha Miranda MD Attending Provider: Radha Miranda MD Primary Care [facility] Consult Narrative Reason for consult: hyponatremia History of present illness: This patient is a 49-year-old male with past medical history of schizophrenia on fluphenazine was brought in by EMS from senior living( [facility]) on 06/26/25 with chief complaint of altered mental status with drooling and urine incontinence with flaccid weakness in upper extremities and post ictal confusion. Admitted for hyponatremia work up. His baseline AO x 3. Per RN who works in senior living reported that patient fell and they found water on floor. Patient was not responding to painful stimuli was exhibiting right and left upper extremity flaccid weakness associated with drooling and urine incontinence. He was nonverbal and appeared in postictal confusion. Initially, In senior living evaluated and was concern on catatonia however patient continued to remain in postictal confusion therefore he he was brought in to the ED via EMS. RN reported that patient is in single cell due to his mental health issue i.e schizophrenia. Patient takes only 1 medication (fluphenazine) prescribed by his psychiatrist can be contacted on [phone] Dr. Villavicencio. She stated that patient did not had any history of seizures and this is her first episode as well.He had no recent fever or infection in past 48 hours. GCS on arrival was 8. Vitals showed BP 123/73 Pulse 80, oxygen saturation 97% on nasal cannula and blood sugar 117 mg/dL. 06/27/25: Nephrology consulted for symptomatic hyponatremia. In ED, sodium overcorrected from 121 to 129 within 4 hours likely 2/2 2 L of normal saline in ED. D5W was started to decrease sodium. Patient seen examined in ICU, asleep. Given dilute urine and continued correction of sodium this a.m. following NS boluses last night, leading differential polydipsia causing hyponatremia thus inciting seizure. Continue D5W with goal sodium 126 by 8 p.m. tonight and desmopressin 1 mcg twice daily. cc:: cc: Radha Miranda MD Review of Systems Review of Systems ROS Unobtainable: unobtainable due to medical condition Exam Vital Signs Temp Pulse Resp BP Pulse Ox O2 Del Method 97.8 F 68 18 120/78 100 Room Air 06/27/25 00:14 06/27/25 06:00 06/27/25 06:00 06/27/25 06:00 06/27/25 06:00 06/27/25 02:19 Narrative Exam GENERAL: asleep, no acute distress HEENT: mucous membranes moist, bilateral sclera anicteric CARDIOVASCULAR: regular rate and rhythm, S1/S2 present, no murmurs appreciated PULMONARY: clear to auscultation bilaterally, no rales/rhonchi/wheezes ABDOMINAL: soft, non-tender, non-distended, no rebound/guarding, bowel sounds present EXTREMITIES: no peripheral edema SKIN: warm and dry, intact, no rashes NEURO: CN II-XII grossly intact, no focal deficits Results Labs 06/27/25 04:15 06/27/25 12:45 Labs: Short CBC 06/26/25 06/27/25 Range/Units 20:10 04:15 WBC 15.4 H 11.7 H (3.8-10.6) Thou/mm3 Hgb 13.1 L 12.0 L (13.5-16.0) g/dL Hct 34.1 L 32.5 L (41.0-53.0) % Plt Count 211 207 (140-440) Thou/mm3 BMP 06/26/25 06/27/25 06/27/25 20:10 00:19 02:54 Sodium 121 L 129 L 133 L Potassium 3.8 4.3 D Chloride 90 L 97 L Carbon Dioxide 24.2 23.1 BUN 6 L 6 L Creatinine 0.7 0.7 Glucose 103 97 Calcium 8.6 8.9 06/27/25 06/27/25 06/27/25 04:21 04:53 06:45 Sodium 132 L 131 L 130 L Potassium 4.0 Chloride 99 Carbon Dioxide 25.2 BUN 6 L Creatinine 0.8 Glucose 92 Calcium 9.0 06/27/25 09:08 Sodium 129 L Potassium 3.6 Chloride 96 L Carbon Dioxide 24.6 BUN 5 L Creatinine 0.8 Glucose 87 Calcium 8.7 Cardiac Enzymes 06/26/25 06/27/25 Range/Units 20:10 04:21 Total Creatine Kinase 2249 H 3466 H D (34-171) U/L Troponin I < 0.020 (0.0-0.045) ng/mL Liver Function 06/26/25 06/27/25 06/27/25 Range/Units 20:10 00:19 04:21 Total Bilirubin 1.7 H 1.3 H (0.3-1.2) mg/dL Direct Bilirubin 0.6 H (0.0-0.3) mg/dL AST 61 H 66 H (0-34) U/L ALT 20 25 (10-49) U/L Alkaline Phosphatase 67 68 (46-116) U/L Albumin 4.0 4.1 4.1 (3.5-5.0) gm/dL 06/27/25 Range/Units 09:08 Total Bilirubin 1.1 (0.3-1.2) mg/dL Direct Bilirubin (0.0-0.3) mg/dL AST 96 H (0-34) U/L ALT 23 (10-49) U/L Alkaline Phosphatase 68 (46-116) U/L Albumin 4.2 (3.5-5.0) gm/dL Urine 06/26/25 Range/Units 20:10 Urine Color Colorless A (Lt Yel-Yel) Urine Clarity Clear (Clear/Hazy) Urine pH 7.0 (5.0-7.0) Ur Specific [place] 1.003 (1.001-1.035) Urine Protein Negative (Neg - Trace) Urine Glucose (UA) Negative (Negative) ABG Interpretation ABG results: 06/26/25 20:36 ABG pH 7.45 ABG pCO2 37 ABG pO2 69 L ABG HCO3 26 ABG O2 Saturation 95 ABG Base Excess 2 Quality Measures Quality Measures VTE prophylaxis (Heparin SC ) Medications Home Medications and Allergies Allergies Allergy/AdvReac Type Severity Reaction Status Date / Time Penicillins Allergy Verified 06/26/25 20:30 Visit Medications Acetaminophen (Acetaminophen 325 Mg Tablet) 650 mg PO Q6H PRN PRN Reason: Fever >100.4 or pain 1-3 Stop: 07/26/25 23:58 Desmopressin Acetate (Desmopressin Acet Inj 4 Mcg/Ml Vial 10ml) 1 mcg IV BID PRN PRN Reason: If UO >250/hr for more than 2h Stop: 07/27/25 20:59 Docusate Sodium (Docusate Sod 100 Mg Capsule) 100 mg PO QDAY [facility]; Protocol Stop: 07/27/25 08:59 Last Admin: 06/27/25 08:42 Dose: Not Given Heparin Sodium (Porcine) (Heparin Sod Inj 5000 Unit/Ml Vial) 5,000 unit SC Q12HR [facility] Stop: 07/11/25 08:59 Last Admin: 06/27/25 08:33 Dose: 5,000 unit Dextrose (D5w) 1,000 mls @ 70 mls/hr IV .[id number] [facility] Stop: 07/27/25 08:43 Levetiracetam (Levetiracetam Inj 100 Mg/Ml Vial 5ml) 1,000 mg IVP Q12HR [facility] Stop: 07/27/25 08:59 Last Admin: 06/27/25 08:32 Dose: 1,000 mg Lorazepam (Lorazepam 2 Mg/Ml Vial) 4 mg IVP Q15MIN PRN PRN Reason: Breakthrough seizure Stop: 07/02/25 01:23 Discontinued Medications Desmopressin Acetate (Desmopressin Acet Inj 4 Mcg/Ml Vial 10ml) 4 mcg IV X1 ONE Stop: 06/27/25 00:25 Last Admin: 06/27/25 00:57 Dose: Not Given Desmopressin Acetate (Desmopressin Acetate 4 Mcg/Ml Vial) 4 mcg IV X1 ONE Stop: 06/27/25 00:46 Desmopressin Acetate (Desmopressin Acetate 4 Mcg/Ml Vial) 4 mcg IV X1 ONE Stop: 06/27/25 01:01 Last Admin: 06/27/25 01:00 Dose: 4 mcg Desmopressin Acetate (Desmopressin Acetate 4 Mcg/Ml Vial) 2 mcg IV X1 ONE Stop: 06/27/25 03:53 Last Admin: 06/27/25 04:08 Dose: 2 mcg Desmopressin Acetate (Desmopressin Acetate 4 Mcg/Ml Vial) 2 mcg IV Q6H [facility] Stop: 07/27/25 06:59 Sodium Chloride (Ns) 1,000 mls @ 999 mls/hr IV .Q1H1M ONE Stop: 06/26/25 21:19 Last Infusion: 06/26/25 22:30 Dose: Infused Sodium Chloride (Ns) 1,000 mls @ 999 mls/hr IV .Q1H1M ONE Stop: 06/27/25 01:24 Last Infusion: 06/27/25 01:08 Dose: 0 mls/hr Dextrose (D5w) 1,000 mls @ 100 mls/hr IV .Q10H [facility] Stop: 07/27/25 01:44 Last Admin: 06/27/25 01:57 Dose: 100 mls/hr Magnesium Sulfate (Magnesium Sulfate Ivpb) 2 gm in 50 mls @ 25 mls/hr IV X1 ONE Stop: 06/27/25 05:08 Last Admin: 06/27/25 03:16 Dose: 25 mls/hr Dextrose (D5w) 1,000 mls @ 160 mls/hr IV .Q6H15M [facility] Stop: 07/27/25 03:29 Dextrose (D5w) 1,000 mls @ 170 mls/hr IV .Q5H53M [facility] Stop: 07/27/25 03:36 Last Admin: 06/27/25 04:00 Dose: 170 mls/hr Dextrose (D5w) 1,000 mls @ 200 mls/hr IV .Q5H [facility] Stop: 07/27/25 05:04 Last Admin: 06/27/25 08:41 Dose: 200 mls/hr Dextrose (D5w) 1,000 mls @ 100 mls/hr IV .Q10H [facility] Stop: 07/27/25 08:41 Levetiracetam (Levetiracetam Inj 100 Mg/Ml Vial 5ml) 2,000 mg IVP X1 ONE Stop: 06/26/25 21:08 Last Admin: 06/26/25 21:34 Dose: 2,000 mg Ondansetron HCl (Ondansetron Inj 2 Mg/Ml Inj 2 Ml) 4 mg IVP X1 [facility]; Protocol Stop: 06/26/25 20:20 Last Admin: 06/26/25 20:47 Dose: 4 mg Pantoprazole Sodium (Pantoprazole 40 Mg Tablet) 40 mg PO QDAY [facility] Stop: 07/27/25 08:59 Assessment & Plan Plan Evan Byrd 49M pmhx significant for schizophrenia on fluphenazine was brought in by EMS from senior living( [facility]) on 06/26/25 with chief complaint of altered mental status with drooling and urine incontinence with flaccid weakness in upper extremities and post ictal confusion, admitted for symptomatic hyponatremia. #Symptomatic hyponatremia #Hx of seizures Presented post seizure and further hx on admission unable to be obtained due to postictal state. On fluphenazine. On admission, Na 120. Ulytes Na<15, Cl <20, K<10, Cr<20 Ddx: Given dilute urine and continued correction of sodium this a.m. following NS boluses in ED, leading differential polydipsia causing hyponatremia thus inciting seizure as patient also has very good output after stopping the fluids vs SIADH component 2/2 fluphenazine with polydipsia Plan: - Continue D5W with goal sodium 126 by 8 p.m. tonight and desmopressin 1 mcg BID - Hold D5W if Na decreases below 126 and CTM Na following cessation as anticipate natural rise of Na - q2h Na checks - Strict I&Os #Acute encephalopathy #Seizure #Hypotension due to hypovolemia #Pulm Nodule, incidental finding per CT #Mild Hepatitis and Elevated T. 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 Plan of care discussed with attending Dr. Al Duncan, DO PGY-1 Internal Medicine Attending Provider Attestation/Addendum patient seen and examined with resident physician Dr. Duncan. Note reviewed, agree with findings and recommendations. Patient currently seen in ICU. Postictal and altered. Chart reviewed. Patient from senior living. correctional security officer at bedside. Patient with symptomatic hyponatremia and seizure. Urine sodium less than 15 With fluid restriction itself patient overshoot from 121-- 129 in 3 hrs Patient was given overnight desmopressin and was started on D5W. This morning the serum sodium is 129 Agree with continuing on D5W and Desmopressin to avoid overcorrection. Thank you Nitish for allowing me to participate in the care of Mr. Gordon
[2025-06-27 11:22] LABS: Alanine Aminotransferase 26 U/L (10-49); Albumin, Serum 4.1 gm/dL (3.5-5.0); Albumin/Globulin Ratio 2.2 (1.2-2.2); Alkaline Phosphatase 66 U/L (46-116); Anion Gap 8 (7-16); Aspartate Amino Transferase 98 U/L (0-34); BUN/Creatinine Ratio 6 Ratio (12-20); Bilirubin,Total 1.1 mg/dL (0.3-1.2); Blood Urea Nitrogen < 5 mg/dL (9-23); Calcium 8.9 mg/dL (8.3-10.6); Calcium (Corrected) 8.9 mg/dL (8.5-10.1); Carbon Dioxide 24.9 mMol/L (20.0-31.0); Chloride 97 mMol/L (98-107); Creatinine (Component) 0.8 mg/dL (0.6-1.3); Estimated Creatinine Clearance 106.9 mL/min (>60); Globulin 1.9 gm/dL (2.3-3.5); Glucose 90 mg/dL (74-106); Osmolality,Calculated 258 (275-295); Potassium 3.5 mMol/L (3.4-5.1); Sodium 130 mMol/L (136-145); Total Protein 6.0 gm/dL (5.7-8.2); eGFR > 60 See Note
[2025-06-27] MEDS: DEXTROSE 5%-WATER 1,000 ML 85 ML IV (11:33)
--- NOTE | 2025-06-27 12:59 | ESPR_ITS ---
<Statement entered by Job Gould MD - 06/27/25 19:18> TOTAL CC TIME: 45 MIN I saw and evaluated the patient. I reviewed the resident?s note and agree with findings and plan as documented in the resident?s note. Upon my evaluation, this patient had a high probability of imminent or life- threatening deterioration due to severe symptomatic hyponatremia, which required my direct attention, intervention, and personal management. This time is exclusive of time spent on procedures, which are documented separately if performed. likely due to PPD Initial correction overnight was too rapid ICU service was able to improve rate of correction to goal Additional ddavp ordered - but if UO remains as is - further doses can be held goal is to increase Na+ now by 1meq/q4hr approx. d5w was adjusted appropriately with desired outcome cont monitoring UO q1hr w/ reva <Statement entered by Chris Prieto MD - 06/27/25 18:23> I have reviewed the note and agree with the resident's assessment & plan with exceptions as below. I have personally reviewed labs, imaging, home meds/prior records, examined the patient, formulated and discussed management plan with my attending Patient was seen and examined at bedside this morning. Patient was admitted due to symptomatic hyponatremia. Patient does have a history of schizophrenia therefore hyponatremia likely in the setting of polydipsia given that patient did have increased urine output overnight likely as correction for his serum osmolality/sodium. Patient's initial sodium was 121 and rapidly corrected to 133 within 3 hours therefore was started on D5W at 170 cc/h then increase to 200 cc/h and was also given desmopressin 4 mcg x 1 followed with desmopressin 2 mcg x 1 with significant improvement in patient's urine output from 4 L in 1 hour to 115 mL/h this a.m. Patient sodium also down trended to 129 once his D5W was changed to 85 cc/h and appears to be stable at that number for now. Will continue to monitor sodium every 4 hours and with goal of sodium of around 128 to 129 by 8 p.m. if patient sodium does drop will adjust rate of D5W or stop it and if patient's sodium increased by more than 2-3 points per hour will increase rate. Per patient's unwitnessed seizure which was likely precipitated by hyponatremia will continue Keppra for now until hyponatremia has resolved to minimize risk of recurrent seizure. Will also continue to monitor patient's CK which is likely secondary to possible seizure. Otherwise imaging fairly unrevealing other than some osteolytic lesions in the patient's cervical spine CT and a 4 mm nodule on the right upper lobe which should be followed up outpatient with repeat CT in 6 months. At this time patient did not show any signs of dysarthria and is moving all extremities Chris Prieto PGY2 Disclaimer: Even though this this note was dictated by speech recognition and even though it was carefully revised there may still be minor errors in sdet due to voice recognition software. Documentation for date of: 06/27/25 Subjective Subjective Interval history: Patient is a 49 year old male with PMH of schizophrenia on fluphenazine who presented from [facility] half-way facility 06/26 with altered mental status, found to be drooling and urine incontinent with flaccid weak in his upper extremities. His baseline AO x 3. Per RN who works in [facility] reported that patient fell and they found water on floor. Patient was not responding to painful stimuli was exhibiting right and left upper extremity flaccid weakness associated with drooling and urine incontinence. He was nonverbal and appeared in postictal confusion. Initially, In [facility] evaluated and was concern on catatonia however patient continued to remain in postictal confusion therefore he he was brought in to the ED via EMS. RN reported that patient is in single cell due to his mental health issue i.e schizophrenia. Patient takes only 1 medication prescribed by his psychiatrist . Dr Villavicencio. She stated that patient did not had any history of seizures and this is her first episode as well.He had no recent fever or infection in past 48 hours. GCS on arrival was 8. Vitals showed BP 123/73 Pulse 80, oxygen saturation 97% on nasal cannula and blood sugar 117 mg/dL. In the ED, patient's blood pressure was 129/73, pulse 85, RR 15, afebrile and saturating well on room air. Labs revealed mild leukocytosis white count 15.4, hemoglobin 13.1. Platelet count stable. ESR unremarkable. ABGs showed pH 7.45, pCO2 37, pO2 69. Chemistry panel showed serum sodium 121--> 129, potassium 4.3, chloride 97. BUN 6 and creatinine 0.7. Blood glucose 97. A1c 4.6. Lactic acid 2.5. Magnesium 1.6. T. bili 1.7. Regular Abdi 0.6. AST 61. Total creatinine kinase 2249. CRP normal. BNP 303. Lipase was negative. Procalcitonin negative. TSH unremarkable. Urine showed pH 7.0, colorless with blood 1+. U tox was negative. Tylenol level negative. Blood alcohol negative. EKG showed sinus rhythm with no acute ST-T changes. QTc 477.-Head CT showed no acute changes. Face CT showed no acute fracture. Chest x-ray showed moderate vascular congestion with edema with edema in lung bases. Cervical spine CT showed osteolytic lesions throughout all vertebrae bodies, focal area of osteopenia. Recommended MRI cervical spine. Chest CT abdomen pelvis showed 4 mm pulmonary nodule right upper lobe. Urinary bladder wall marked thickening with differentials cystitis and bladder cancer not excluded. Patient received 2 L bolus NS, Zofran 4 mg x 1 and Keppra 2000 mg x 1 in the ED. 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 Urine output calculated to be about 7-8 L over the first few hours of admission. Given desmopressin 4 mcg x 1 due to concern of SIADH. Sodium overcorrected from 121 to 129. Started on D5W at 150 cc/h, increased to 200 cc/h as sodium jumped to 133. Continue to have increased urine output, given another desmopressin 2 mcg x 1. Sodium continue to gradually downtrend overnight to 130. Urine output improved to about 100 cc/h. Patient was seen and examined at bedside. Continues to be confused, A&O x 1 (oriented to self). Able to follow commands and move all 4 extremities. Will continue to monitor urine output, titrate D5W rate based on estimated free water loss in urine. Goal sodium 128-129 by 8 PM. Correct Na 4- 6 mEq every 24 hours to avoid ODS. Spoke with psychiatrist who agrees with holding fluphenazine at this time. Will follow-up on Monday in [facility]. Also updated medical coordinator Dr. Mellissa on patient's condition and plan for treatment, agreeable to plan to hold current medication and will follow up upon discharge. Exam Vital Signs Temp Pulse Resp BP Pulse Ox O2 Del Method 99.1 F 63 12 124/75 100 Room Air 06/27/25 08:00 06/27/25 12:00 06/27/25 12:00 06/27/25 12:00 06/27/25 12:00 06/27/25 02:19 Narrative Exam Physical Exam General: Awake and in no acute distress. Confused. Oriented only to self. HEENT: Normocephalic, atraumatic, mucous membranes moist. Heart: Regular rate and rhythm, normal S1 and S2, no murmurs. Lungs: Clear to auscultation with no wheezing or crackles. Abdomen: Soft, nondistended, nontender, positive bowel sounds. No guarding or rebound tenderness. Neurologic: Alert and oriented x1 (oriented to self), no gross neurological deficit, and patient able to move all 4 extremities. Extremities: No edema. Skin: Ecchymoses around bilateral knees. No rashes. Objective Labs 06/27/25 04:15 06/27/25 17:29 Labs: Laboratory Results - last 24 hr 06/26/25 06/26/25 06/26/25 00:19 20:10 20:36 WBC 15.4 H RBC 4.30 L Hgb 13.1 L Hct 34.1 L MCV 79 L MCH 30.5 MCHC 38.4 H RDW Std Deviation 36.6 Plt Count 211 Neut % (Auto) 88 H Lymph % (Auto) 3 L [place] % (Auto) 8 Eos % (Auto) 0 Baso % (Auto) 0 Neut # (Auto) 13.6 H Lymph # (Auto) 0.5 L [place] # (Auto) 1.2 H Eos # (Auto) 0.0 Baso # (Auto) 0.0 Immature Gran # (Auto) 0.06 H Absolute Nucleated RBC 0.00 Immature Gran % 0 Nucleated RBC % 0 ESR 1 Puncture Site Right Radial ABG pH 7.45 ABG pCO2 37 ABG pO2 69 L ABG HCO3 26 ABG O2 Saturation 95 ABG Base Excess 2 FiO2 21 Sodium 121 L Potassium 3.8 Chloride 90 L Carbon Dioxide 24.2 Anion Gap 7 BUN 6 L Creatinine 0.7 Estim Creat Clear Calc 122.1 eGFR > 60 BUN/Creatinine Ratio 9 L Glucose [address] Glu mg/dL 85 Hemoglobin A1c 4.6 L Calculated Osmolality 241 L Lactic Acid 1.7 2.5 H Calcium 8.6 Corrected Calcium 8.6 Phosphorus Magnesium 1.6 Total Bilirubin 1.7 H Direct Bilirubin 0.6 H AST 61 H ALT 20 Alkaline Phosphatase 67 Ammonia 20 Total Creatine Kinase 2249 H Troponin I < 0.020 C-Reactive Prot, Quant < 0.5 B-Natriuretic Peptide 303 H Total Protein 5.8 Albumin 4.0 Globulin 1.8 L Albumin/Globulin Ratio 2.2 Lipase 20 Beta-Hydroxybutyrate/Acetoacetate 0.2 Procalcitonin 0.14 TSH 1.14 Ur Collection Type Clean Catch Urine Color Colorless A Urine Clarity Clear Urine pH 7.0 Ur Specific [place] 1.003 Urine Protein Negative Urine Glucose (UA) Negative Urine Ketones Negative Urine Blood 1+ A Urine Nitrite Negative Urine Bilirubin Negative Urine Urobilinogen (Auto) Negative Ur Leukocyte Esterase Negative Urine RBC 1 Urine WBC < 1 Ur Squamous Epith Cells 0 Urine Bacteria None Ur Culture Indicated? Not Indicated Ur Random Creatinine Ur Random Sodium Ur Random Potassium Ur Random Chloride Salicylates < 3.0 Urine Opiates Screen Negative Urine Fentanyl Screen Negative Acetaminophen < 2.0 L Ur Barbiturates Screen Negative U Amphetamin/Meth Scrn Negative U Benzodiazepines Scrn Negative U Cocaine Metab Screen Negative U Marijuana (THC) Screen Negative Ethyl Alcohol < 3.0 Hepatitis A IgM Ab Hep Bs Antigen Hep B Core IgM Ab Hepatitis C Antibody Influenza A (Rapid) Influenza B (Rapid) 06/27/25 06/27/25 06/27/25 00:19 02:47 02:54 WBC RBC Hgb Hct MCV MCH MCHC RDW Std Deviation Plt Count Neut % (Auto) Lymph % (Auto) [place] % (Auto) Eos % (Auto) Baso % (Auto) Neut # (Auto) Lymph # (Auto) [place] # (Auto) Eos # (Auto) Baso # (Auto) Immature Gran # (Auto) Absolute Nucleated RBC Immature Gran % Nucleated RBC % ESR Puncture Site ABG pH ABG pCO2 ABG pO2 ABG HCO3 ABG O2 Saturation ABG Base Excess FiO2 Sodium 129 L 133 L Potassium 4.3 D Chloride 97 L Carbon Dioxide 23.1 Anion Gap 9 BUN 6 L Creatinine 0.7 Estim Creat Clear Calc 122.1 eGFR > 60 BUN/Creatinine Ratio 9 L Glucose [address] Glu mg/dL Hemoglobin A1c Calculated Osmolality 256 L Lactic Acid Calcium 8.9 Corrected Calcium 8.9 Phosphorus 3.9 Magnesium Total Bilirubin Direct Bilirubin AST ALT Alkaline Phosphatase Ammonia Total Creatine Kinase Troponin I C-Reactive Prot, Quant B-Natriuretic Peptide Total Protein Albumin 4.1 Globulin Albumin/Globulin Ratio Lipase Beta-Hydroxybutyrate/Acetoacetate Procalcitonin TSH Ur Collection Type Urine Color Urine Clarity Urine pH Ur Specific [place] Urine Protein Urine Glucose (UA) Urine Ketones Urine Blood Urine Nitrite Urine Bilirubin Urine Urobilinogen (Auto) Ur Leukocyte Esterase Urine RBC Urine WBC Ur Squamous Epith Cells Urine Bacteria Ur Culture Indicated? Ur Random Creatinine Ur Random Sodium Ur Random Potassium Ur Random Chloride Salicylates Urine Opiates Screen Urine Fentanyl Screen Acetaminophen Ur Barbiturates Screen U Amphetamin/Meth Scrn U Benzodiazepines Scrn U Cocaine Metab Screen U Marijuana (THC) Screen Ethyl Alcohol Hepatitis A IgM Ab Hep Bs Antigen Hep B Core IgM Ab Hepatitis C Antibody Influenza A (Rapid) Negative Influenza B (Rapid) Negative 06/27/25 06/27/25 06/27/25 02:59 03:08 03:45 WBC RBC Hgb Hct MCV MCH MCHC RDW Std Deviation Plt Count Neut % (Auto) Lymph % (Auto) [place] % (Auto) Eos % (Auto) Baso % (Auto) Neut # (Auto) Lymph # (Auto) [place] # (Auto) Eos # (Auto) Baso # (Auto) Immature Gran # (Auto) Absolute Nucleated RBC Immature Gran % Nucleated RBC % ESR Puncture Site ABG pH ABG pCO2 ABG pO2 ABG HCO3 ABG O2 Saturation ABG Base Excess FiO2 Sodium Potassium Chloride Carbon Dioxide Anion Gap BUN Creatinine Estim Creat Clear Calc eGFR BUN/Creatinine Ratio Glucose Estimated Ave Glu mg/dL Hemoglobin A1c Calculated Osmolality Lactic Acid 1.4 Calcium Corrected Calcium Phosphorus Magnesium Total Bilirubin Direct Bilirubin AST ALT Alkaline Phosphatase Ammonia Total Creatine Kinase Troponin I C-Reactive Prot, Quant B-Natriuretic Peptide Total Protein Albumin Globulin Albumin/Globulin Ratio Lipase Beta-Hydroxybutyrate/Acetoacetate Procalcitonin TSH Ur Collection Type Urine Color Urine Clarity Urine pH Ur Specific [place] Urine Protein Urine Glucose (UA) Urine Ketones Urine Blood Urine Nitrite Urine Bilirubin Urine Urobilinogen (Auto) Ur Leukocyte Esterase Urine RBC Urine WBC Ur Squamous Epith Cells Urine Bacteria Ur Culture Indicated? Ur Random Creatinine < 13 L Ur Random Sodium < 15.0 L Ur Random Potassium < 10 L Ur Random Chloride < 20.0 L Salicylates Urine Opiates Screen Urine Fentanyl Screen Acetaminophen Ur Barbiturates Screen U Amphetamin/Meth Scrn U Benzodiazepines Scrn U Cocaine Metab Screen U Marijuana (THC) Screen Ethyl Alcohol Hepatitis A IgM Ab Non Reactive Hep Bs Antigen Non Reactive Hep B Core IgM Ab Non Reactive Hepatitis C Antibody Non Reactive Influenza A (Rapid) Influenza B (Rapid) 06/27/25 06/27/25 06/27/25 04:15 04:21 04:53 WBC 11.7 H RBC 3.96 L Hgb 12.0 L Hct 32.5 L MCV 82 MCH 30.3 MCHC 36.9 RDW Std Deviation 38.7 Plt Count 207 Neut % (Auto) 85 H Lymph % (Auto) 6 L [place] % (Auto) 9 Eos % (Auto) 0 Baso % (Auto) 0 Neut # (Auto) 9.9 H Lymph # (Auto) 0.6 L [place] # (Auto) 1.1 H Eos # (Auto) 0.0 Baso # (Auto) 0.0 Immature Gran # (Auto) 0.03 H Absolute Nucleated RBC 0.00 Immature Gran % 0 Nucleated RBC % 0 ESR Puncture Site ABG pH ABG pCO2 ABG pO2 ABG HCO3 ABG O2 Saturation ABG Base Excess FiO2 Sodium 132 L 131 L Potassium 4.0 Chloride 99 Carbon Dioxide 25.2 Anion Gap 8 BUN 6 L Creatinine 0.8 Estim Creat Clear Calc 106.9 eGFR > 60 BUN/Creatinine Ratio 8 L Glucose [address] Glu mg/dL Hemoglobin A1c Calculated Osmolality 262 L Lactic Acid 1.4 Calcium 9.0 Corrected Calcium 9.0 Phosphorus 3.3 Magnesium 2.2 Total Bilirubin 1.3 H Direct Bilirubin AST 66 H ALT 25 Alkaline Phosphatase 68 Ammonia Total Creatine Kinase 3466 H D Troponin I C-Reactive Prot, Quant B-Natriuretic Peptide Total Protein 6.0 Albumin 4.1 Globulin 1.9 L Albumin/Globulin Ratio 2.2 Lipase Beta-Hydroxybutyrate/Acetoacetate Procalcitonin TSH 1.48 Ur Collection Type Urine Color Urine Clarity Urine pH Ur Specific [place] Urine Protein Urine Glucose (UA) Urine Ketones Urine Blood Urine Nitrite Urine Bilirubin Urine Urobilinogen (Auto) Ur Leukocyte Esterase Urine RBC Urine WBC Ur Squamous Epith Cells Urine Bacteria Ur Culture Indicated? Ur Random Creatinine Ur Random Sodium Ur Random Potassium Ur Random Chloride Salicylates Urine Opiates Screen Urine Fentanyl Screen Acetaminophen Ur Barbiturates Screen U Amphetamin/Meth Scrn U Benzodiazepines Scrn U Cocaine Metab Screen U Marijuana (THC) Screen Ethyl Alcohol Hepatitis A IgM Ab Hep Bs Antigen Hep B Core IgM Ab Hepatitis C Antibody Influenza A (Rapid) Influenza B (Rapid) 06/27/25 06/27/25 06/27/25 06:45 09:08 10:45 WBC RBC Hgb Hct MCV MCH MCHC RDW Std Deviation Plt Count Neut % (Auto) Lymph % (Auto) [place] % (Auto) Eos % (Auto) Baso % (Auto) Neut # (Auto) Lymph # (Auto) [place] # (Auto) Eos # (Auto) Baso # (Auto) Immature Gran # (Auto) Absolute Nucleated RBC Immature Gran % Nucleated RBC % ESR Puncture Site ABG pH ABG pCO2 ABG pO2 ABG HCO3 ABG O2 Saturation ABG Base Excess FiO2 Sodium 130 L 129 L 130 L Potassium 3.6 3.5 Chloride 96 L 97 L Carbon Dioxide 24.6 24.9 Anion Gap 8 8 BUN 5 L < 5 L Creatinine 0.8 0.8 Estim Creat Clear Calc 106.9 106.9 eGFR > 60 > 60 BUN/Creatinine Ratio 6 L 6 L Glucose [address] Glu mg/dL Hemoglobin A1c Calculated Osmolality 255 L 258 L Lactic Acid Calcium 8.7 8.9 Corrected Calcium 8.7 8.9 Phosphorus Magnesium Total Bilirubin 1.1 1.1 Direct Bilirubin AST 96 H 98 H ALT 23 26 Alkaline Phosphatase 68 66 Ammonia Total Creatine Kinase Troponin I C-Reactive Prot, Quant B-Natriuretic Peptide Total Protein 6.1 6.0 Albumin 4.2 4.1 Globulin 1.9 L 1.9 L Albumin/Globulin Ratio 2.2 2.2 Lipase Beta-Hydroxybutyrate/Acetoacetate Procalcitonin TSH Ur Collection Type Urine Color Urine Clarity Urine pH Ur Specific [place] Urine Protein Urine Glucose (UA) Urine Ketones Urine Blood Urine Nitrite Urine Bilirubin Urine Urobilinogen (Auto) Ur Leukocyte Esterase Urine RBC Urine WBC Ur Squamous Epith Cells Urine Bacteria Ur Culture Indicated? Ur Random Creatinine Ur Random Sodium Ur Random Potassium Ur Random Chloride Salicylates Urine Opiates Screen Urine Fentanyl Screen Acetaminophen Ur Barbiturates Screen U Amphetamin/Meth Scrn U Benzodiazepines Scrn U Cocaine Metab Screen U Marijuana (THC) Screen Ethyl Alcohol Hepatitis A IgM Ab Hep Bs Antigen Hep B Core IgM Ab Hepatitis C Antibody Influenza A (Rapid) Influenza B (Rapid) ABG Interpretation ABG results: 06/26/25 20:36 ABG pH 7.45 ABG pCO2 37 ABG pO2 69 L ABG HCO3 26 ABG O2 Saturation 95 ABG Base Excess 2 Quality Measures Quality Measures VTE prophylaxis (Heparin SC ) Assessment & Plan Assessment Current Active Medications: Generic Name Dose Route Start Last Admin Trade Name Freq PRN Reason Stop Dose Admin Acetaminophen 650 mg 06/26/25 23:59 Acetaminophen 325 Mg Tablet PO 07/26/25 23:58 Q6H PRN Fever >100.4 or pain 1-3 Desmopressin Acetate 1 mcg 06/27/25 21:00 Desmopressin Acet Inj 4 Mcg/Ml Vial 10ml IV 07/27/25 20:59 BID PRN If UO >250/hr for more than 2h Docusate Sodium 100 mg 06/27/25 09:00 06/27/25 08:42 Docusate Sod 100 Mg Capsule PO 07/27/25 08:59 Not Given QDAY RIKKI Protocol Heparin Sodium (Porcine) 5,000 unit 06/27/25 09:00 06/27/25 08:33 Heparin Sod Inj 5000 Unit/Ml Vial SC 07/11/25 08:59 5,000 unit Q12HR RIKKI Administration Dextrose 1,000 mls @ 85 mls/hr 06/27/25 11:33 D5w IV 07/27/25 11:32 .[id number] RIKKI Levetiracetam 1,000 mg 06/27/25 09:00 06/27/25 08:32 Levetiracetam Inj 100 Mg/Ml Vial 5ml IVP 07/27/25 08:59 1,000 mg Q12HR RIKKI Administration Lorazepam 4 mg 06/27/25 01:24 Lorazepam 2 Mg/Ml Vial IVP 07/02/25 01:23 Q15MIN PRN Breakthrough seizure Plan Patient is a 49-year-old male with past medical history of schizophrenia on fluphenazine was [facility] in [facility] with chief complaint of altered mental status with drooling and urine incontinence with flaccid weakness in upper extremities and post ictal confusion. Baseline AO x 3. 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 Per RN in [facility] patient had drooling and upper extremity flaccid weakness +drooling with bowel and bladder incontinence.Patient fell and water was found on the floor. Patient remained in postictal confusion and route to the ED. GCS 8 on arrival improved to 11. -Head CT showed no acute changes. -Face CT showed no acute fracture. -Chest x-ray showed moderate vascular congestion with edema in lung bases. -Cervical spine CT showed osteolytic lesions throughout all vertebrae bodies, focal area of osteopenia. Recommended MRI cervical spine. -EKG showed sinus rhythm with QTc 477. No acute ST-T changes. -Blood glucose 121. U tox was negative. Serum sodium 121 on admission. -ABG showed pH 7.45, pCO2 37, pO2 69. FiO2 21%. Treatment: - S/p 2 g Keppra IV x 1 and 2 L bolus of NS x 1 in the ED. - S/p D5W at 100 cc/hr due to rapid overcorrection of sodium - Keppra 1 g IV twice daily to prevent any further seizures - Ativan 4 mg every 15 minutes as needed for breakthrough seizure -Due to rapid correction of sodium, started on D5W at 100 cc and desmopressin 4 mcg given x 1 -Seizure precautions and aspiration precaution Treatment follow-up: - CMP Q2hr, change to Q4hr once stable at goal 129 - Neurochecks Q2hr Cardiovascular #Hypotension due to hypovolemia (resolved) DDx: Dehydration due to excessive osmotic diuresis/Fluid loss possible loss of ADH response Diagnostic workup: -Vitals: BP dropped from Systolic 123 to 90s. MAP dropped to 56 two times. -Patient had a urine output of more than 8 L within few hours since admission. -Examination showed dry mucous membrane. Warm peripheries. no delayed capillary refill. No signs of infection. -BP now stable with systolics of 120s Treatment: - S/p 2 L NS x 1 in the ED. - Decreased D5W at 85 cc/h due to decreased urine output Treatment follow-up: - Monitor urine output hourly. Titrate D5W based on estimated free water loss in urine. Respiratory #Pulm Nodule, incidental finding per CT Diagnostic workup: -Chest CT abdomen pelvis showed 4 mm pulmonary nodule right upper lobe. Urinary bladder wall marked thickening with differentials cystitis and bladder cancer not excluded. Treatment: -no acute management Treatment follow-up: -outpatient follow up for monitoring size GI #Mild Hepatitis and Elevated T. bili Diagnostic workup: -AST 61 ,T Filiberto: 1.7 D Filiberto: 0.6 -CT abdomen was unable to visualize gallbladder -Etoh negative . 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 Found surrounded by water. Baseline mentation is AO x 3. No history of previous seizures. - Patient recently started on Prolixin 5 mg twice daily for schizophrenia. Follows with Dr. Villavicencio who is patient's psychiatrist. - No recent changes in the medication. No non-compliance reported. - On admission, sodium 121 -> 133 -> 130 -> 129, serum osmolarity 241, urine osmolarity estimated 90-120. - Due to rapid correction, desmopressin 4 mcg given x 1, desmopressin 2mcg x1 later around 4 am and started D5W at 100 cc/h. - Ordered desmopressin 2 mcg q6h rikki starting @ 7 am to bring goal of sodium to 126 in 24 h today at 20:00 - Urine output> 8 L diluted urine in response to primary polydipsia. Urine output normalized to about 100 cc/hr. - Urine electrolytes showed Na<15, Cl <20, K<10, Cr<20 - According to studies, primary polydipsia has been described in patients with schizophrenia spectrum disorder with an incidence of 11 to 20% Treatment: - Nephrology consulted, appreciate recommendations - Desmopressin 1 mcg BID prn - Goal Na 129 until 8PM Treatment follow up: - CMP Q2hr, change to Q4hr once stable at goal 129 - Goal of sodium correction 4-6 meq every 24 hours, goal tomorrow 133-135 - Neurochecks Q2hr #Rhabdomyolysis DDx: Seizures Diagnostic workup: - Found in confused state with flaccid paralysis of upper extremities. - Creatinine kinase 2249 -> 3466 Treatment: - On D5W - Encourage oral hydration Treatment follow-up: -Follow-up repeat CK - Monitor for seizure activity #Lactic acidosis type A (resolved) DDx: Hypotension due to volume loss DI Diagnostic workup: -Lactic acid 2.5 -> 1.4 - S/p 2L bolus in ED. Treatment: -On D5W -Encourage oral hydration Heme #Microcytic normocytic anemia Diagnostic workup: -Hemoglobin 13.1, MCV 79 Treatment: -No acute management as there is no signs of active bleeding Treatment follow up: - Daily CBC - outpatient anemia work up #Leukocytosis, reactive Ddx: seizure Diagnostic work up: -WBC 15.4 - Afebrile - UA negative Treatment: -No signs of acute infection Treatment follow up: -Daily CBC Endo none MSK #Osteolytic lesions over vertebral bodies Incidental finding on CT cervical Diagnostic work up: -Cervical spine CT showed osteolytic lesions throughout all vertebrae bodies, focal area of osteopenia. Advanced disc narrowing C4-C5, fusion C5-C6 -Serum corrected calcium 8.9 Treatment: -No active intervention Treatment follow up: -Recommend outpatient follow up ID No active issue ICU Health maintenance: Mechanical ventilation: no Sedation: no Diet: NPO DVT prophylaxis: Heparin SQ GI prophylaxis: none Taylor: none Lines: PIV Antibiotics: none CODE STATUS: FULL Patient plan of care was discussed with the senior resident, -, and attending physician, Dr. Edith Duncan DO, PGY-1
[2025-06-27 13:12] LABS: Alanine Aminotransferase 28 U/L (10-49); Albumin, Serum 4.1 gm/dL (3.5-5.0); Albumin/Globulin Ratio 2.2 (1.2-2.2); Alkaline Phosphatase 66 U/L (46-116); Anion Gap 7 (7-16); Aspartate Amino Transferase 80 U/L (0-34); BUN/Creatinine Ratio 6 Ratio (12-20); Bilirubin,Total 1.1 mg/dL (0.3-1.2); Blood Urea Nitrogen 5 mg/dL (9-23); Calcium 8.9 mg/dL (8.3-10.6); Calcium (Corrected) 8.9 mg/dL (8.5-10.1); Carbon Dioxide 26.1 mMol/L (20.0-31.0); Chloride 96 mMol/L (98-107); Creatinine (Component) 0.8 mg/dL (0.6-1.3); Estimated Creatinine Clearance 106.9 mL/min (>60); Globulin 1.9 gm/dL (2.3-3.5); Glucose 92 mg/dL (74-106); Osmolality,Calculated 256 (275-295); Potassium 3.4 mMol/L (3.4-5.1); Sodium 129 mMol/L (136-145); Total Protein 6.0 gm/dL (5.7-8.2); eGFR > 60 See Note
[2025-06-27 15:37] LABS: Alanine Aminotransferase 28 U/L (10-49); Albumin, Serum 4.0 gm/dL (3.5-5.0); Albumin/Globulin Ratio 2.4 (1.2-2.2); Alkaline Phosphatase 62 U/L (46-116); Anion Gap 9 (7-16); Aspartate Amino Transferase 109 U/L (0-34); BUN/Creatinine Ratio 6 Ratio (12-20); Bilirubin,Total 1.1 mg/dL (0.3-1.2); Blood Urea Nitrogen < 5 mg/dL (9-23); Calcium 8.3 mg/dL (8.3-10.6); Calcium (Corrected) 8.3 mg/dL (8.5-10.1); Carbon Dioxide 25.3 mMol/L (20.0-31.0); Chloride 95 mMol/L (98-107); Creatinine (Component) 0.9 mg/dL (0.6-1.3); Estimated Creatinine Clearance 95.0 mL/min (>60); Globulin 1.7 gm/dL (2.3-3.5); Glucose 90 mg/dL (74-106); Osmolality,Calculated 256 (275-295); Potassium 3.2 mMol/L (3.4-5.1); Sodium 129 mMol/L (136-145); Total Protein 5.7 gm/dL (5.7-8.2); eGFR > 60 See Note
[2025-06-27] MEDS: CALCIUM CARBONATE 600 MG TABLET PO (16:05)
[2025-06-27] MEDS: POTASSIUM CHLORIDE 10% 20 MEQ/15 ML UDC 40 MEQ PO (16:05)
[2025-06-27 18:35] LABS: Alanine Aminotransferase 31 U/L (10-49); Albumin, Serum 4.3 gm/dL (3.5-5.0); Albumin/Globulin Ratio 2.7 (1.2-2.2); Alkaline Phosphatase 64 U/L (46-116); Anion Gap 8 (7-16); Aspartate Amino Transferase 121 U/L (0-34); BUN/Creatinine Ratio 7 Ratio (12-20); Bilirubin,Total 1.1 mg/dL (0.3-1.2); Blood Urea Nitrogen 6 mg/dL (9-23); Calcium 8.5 mg/dL (8.3-10.6); Calcium (Corrected) 8.5 mg/dL (8.5-10.1); Carbon Dioxide 26.4 mMol/L (20.0-31.0); Chloride 96 mMol/L (98-107); Creatinine (Component) 0.9 mg/dL (0.6-1.3); Estimated Creatinine Clearance 95.0 mL/min (>60); Globulin 1.6 gm/dL (2.3-3.5); Glucose 67 mg/dL (74-106); Osmolality,Calculated 256 (275-295); Potassium 3.6 mMol/L (3.4-5.1); Sodium 130 mMol/L (136-145); Total Protein 5.9 gm/dL (5.7-8.2); eGFR > 60 See Note
[2025-06-27 18:40] LABS: Creatine Kinase 6057 U/L (34-171)
[2025-06-27 21:14] LABS: Alanine Aminotransferase 29 U/L (10-49); Albumin, Serum 3.9 gm/dL (3.5-5.0); Albumin/Globulin Ratio 2.2 (1.2-2.2); Alkaline Phosphatase 63 U/L (46-116); Anion Gap 9 (7-16); Aspartate Amino Transferase 115 U/L (0-34); BUN/Creatinine Ratio 6 Ratio (12-20); Bilirubin,Total 0.9 mg/dL (0.3-1.2); Blood Urea Nitrogen 5 mg/dL (9-23); Calcium 8.6 mg/dL (8.3-10.6); Calcium (Corrected) 8.7 mg/dL (8.5-10.1); Carbon Dioxide 23.5 mMol/L (20.0-31.0); Chloride 97 mMol/L (98-107); Creatinine (Component) 0.9 mg/dL (0.6-1.3); Estimated Creatinine Clearance 95.0 mL/min (>60); Globulin 1.8 gm/dL (2.3-3.5); Glucose 93 mg/dL (74-106); Osmolality,Calculated 256 (275-295); Potassium 3.7 mMol/L (3.4-5.1); Sodium 129 mMol/L (136-145); Total Protein 5.7 gm/dL (5.7-8.2); eGFR > 60 See Note
[2025-06-28] VITALS (17 sets, daily range): BP systolic 93–113; BP diastolic 40–68; PULSE 53–76; RESP 7–99; TEMP 36.2–37.2; O2SAT 98–100; BMI 22.2
[2025-06-28 02:15] LABS: Alanine Aminotransferase 30 U/L (10-49); Albumin, Serum 4.0 gm/dL (3.5-5.0); Albumin/Globulin Ratio 2.5 (1.2-2.2); Alkaline Phosphatase 65 U/L (46-116); Anion Gap 8 (7-16); Aspartate Amino Transferase 117 U/L (0-34); BUN/Creatinine Ratio 7 Ratio (12-20); Bilirubin,Total 1.0 mg/dL (0.3-1.2); Blood Urea Nitrogen 6 mg/dL (9-23); Calcium 8.2 mg/dL (8.3-10.6); Calcium (Corrected) 8.2 mg/dL (8.5-10.1); Carbon Dioxide 24.6 mMol/L (20.0-31.0); Chloride 97 mMol/L (98-107); Creatinine (Component) 0.9 mg/dL (0.6-1.3); Estimated Creatinine Clearance 95.0 mL/min (>60); Globulin 1.6 gm/dL (2.3-3.5); Glucose 91 mg/dL (74-106); Osmolality,Calculated 258 (275-295); Potassium 3.6 mMol/L (3.4-5.1); Sodium 130 mMol/L (136-145); Total Protein 5.6 gm/dL (5.7-8.2); eGFR > 60 See Note
[2025-06-28] MEDS: DEXTROSE 5%-WATER 1,000 ML 115 ML IV (04:15)
[2025-06-28] MEDS: DEXTROSE 5%-WATER 1,000 ML 70 ML IV (06:10)
[2025-06-28 06:19] LABS: Basophils # (Auto) 0.0 Thou/mm3 (0.0-0.2); Basophils % (Auto) 1 % (0-2.5); Eosinophils # (Auto) 0.1 Thou/mm3 (0.0-0.5); Eosinophils % (Auto) 1 % (0-10); Hematocrit 31.9 % (41.0-53.0); Hemoglobin 11.4 g/dL (13.5-16.0); Immature Granulocytes Auto 0.02 Thou/mm3 (0.00-0.00); Lymphocytes # (Auto) 1.0 Thou/mm3 (1.0-4.8); Lymphocytes % (Auto) 14 % (10-50); Mean Corpuscular HGB Conc 35.7 g/dl (31.0-37.0); Mean Corpuscular Hemoglobin 30.6 pg (25.0-35.0); Mean Corpuscular Volume 86 fL (80-100); Monocytes # (Auto) 0.7 Thou/mm3 (0.0-0.8); Monocytes % (Auto) 10 % (0-12); Neutrophils # (Auto) 5.0 Thou/mm3 (1.8-7.7); Neutrophils % (Auto) 74 % (37-80); Nucleated Red Blood Cell # 0.00 Thou/mm3 (0.00-0.00); Nucleated Red Blood Cell % 0 /100 WBC (0); Platelet Count 185 Thou/mm3 (140-440); RDW Standard Deviation 41.9 fL (35.1-43.9); Red Blood Count 3.72 Miln/mm3 (4.50-5.90); White Blood Count 6.7 Thou/mm3 (3.8-10.6)
[2025-06-28 06:53] LABS: Alanine Aminotransferase 31 U/L (10-49); Albumin, Serum 4.0 gm/dL (3.5-5.0); Albumin/Globulin Ratio 2.4 (1.2-2.2); Alkaline Phosphatase 61 U/L (46-116); Anion Gap 7 (7-16); Aspartate Amino Transferase 124 U/L (0-34); BUN/Creatinine Ratio 6 Ratio (12-20); Bilirubin,Total 1.0 mg/dL (0.3-1.2); Blood Urea Nitrogen 6 mg/dL (9-23); Calcium 8.6 mg/dL (8.3-10.6); Calcium (Corrected) 8.6 mg/dL (8.5-10.1); Carbon Dioxide 25.4 mMol/L (20.0-31.0); Chloride 97 mMol/L (98-107); Creatinine (Component) 1.0 mg/dL (0.6-1.3); Estimated Creatinine Clearance 83.0 mL/min (>60); Globulin 1.7 gm/dL (2.3-3.5); Glucose 87 mg/dL (74-106); Magnesium 2.0 mg/dL (1.6-2.6); Osmolality,Calculated 255 (275-295); Phosphorous 3.0 mg/dL (2.4-5.1); Potassium 3.7 mMol/L (3.4-5.1); Sodium 129 mMol/L (136-145); Total Protein 5.7 gm/dL (5.7-8.2); eGFR > 60 See Note
[2025-06-28] MEDS: DOCUSATE SOD 100 MG CAPSULE PO (08:38)
[2025-06-28] MEDS: levETIRAcetam INJ 100 MG/ML VIAL 5ML 1000 MG IVP ×2 (08:38→20:25)
[2025-06-28] MEDS: HEPARIN SOD INJ 5000 UNIT/ML VIAL SC ×2 (08:38→20:28)
[2025-06-28 10:24] LABS: Alanine Aminotransferase 31 U/L (10-49); Albumin, Serum 4.1 gm/dL (3.5-5.0); Albumin/Globulin Ratio 2.6 (1.2-2.2); Alkaline Phosphatase 62 U/L (46-116); Anion Gap 11 (7-16); Aspartate Amino Transferase 124 U/L (0-34); BUN/Creatinine Ratio 6 Ratio (12-20); Bilirubin,Total 0.9 mg/dL (0.3-1.2); Blood Urea Nitrogen 6 mg/dL (9-23); Calcium 8.7 mg/dL (8.3-10.6); Calcium (Corrected) 8.7 mg/dL (8.5-10.1); Carbon Dioxide 24.6 mMol/L (20.0-31.0); Chloride 98 mMol/L (98-107); Creatinine (Component) 1.0 mg/dL (0.6-1.3); Estimated Creatinine Clearance 83.0 mL/min (>60); Globulin 1.6 gm/dL (2.3-3.5); Glucose 87 mg/dL (74-106); Osmolality,Calculated 264 (275-295); Potassium 3.3 mMol/L (3.4-5.1); Sodium 134 mMol/L (136-145); Total Protein 5.7 gm/dL (5.7-8.2); eGFR > 60 See Note
--- NOTE | 2025-06-28 11:05 | ESPR_ITS ---
<Statement entered by Job Gould MD - 06/29/25 11:07> TOTAL TIME: 45MINUTES ON DIRECT MEDICAL CARE, MANAGEMENT - COORDINATION AND COUNSELING > 50% OF TOTAL TIME I saw and evaluated the patient. I reviewed the resident?s note and agree with findings and plan as documented in the resident?s note. Sodium remains relatively unchanged but out of the critical abnormal range. Mental status dramatically improved. Reduce free water. Patient is stable to transfer to the medical surgical floor Documentation for date of: 06/28/25 Subjective Subjective Interval history: Patient is a 49 year old male with PMH of schizophrenia on fluphenazine who presented from [facility] 06/26 with altered mental status, found to be drooling and urine incontinent with flaccid weak in his upper extremities. His baseline AO x 3. Per RN who works in alf reported that patient fell and they found water on floor. Patient was not responding to painful stimuli was exhibiting right and left upper extremity flaccid weakness associated with drooling and urine incontinence. He was nonverbal and appeared in postictal confusion. Initially, In alf evaluated and was concern on catatonia however patient continued to remain in postictal confusion therefore he he was brought in to the ED via EMS. RN reported that patient is in single cell due to his mental health issue i.e schizophrenia. Patient takes only 1 medication prescribed by his psychiatrist . Dr Villavicencio. She stated that patient did not had any history of seizures and this is her first episode as well.He had no recent fever or infection in past 48 hours. GCS on arrival was 8. Vitals showed BP 123/73 Pulse 80, oxygen saturation 97% on nasal cannula and blood sugar 117 mg/dL. In the ED, patient's blood pressure was 129/73, pulse 85, RR 15, afebrile and saturating well on room air. Labs revealed mild leukocytosis white count 15.4, hemoglobin 13.1. Platelet count stable. ESR unremarkable. ABGs showed pH 7.45, pCO2 37, pO2 69. Chemistry panel showed serum sodium 121--> 129, potassium 4.3, chloride 97. BUN 6 and creatinine 0.7. Blood glucose 97. A1c 4.6. Lactic acid 2.5. Magnesium 1.6. T. bili 1.7. Regular Abdi 0.6. AST 61. Total creatinine kinase 2249. CRP normal. BNP 303. Lipase was negative. Procalcitonin negative. TSH unremarkable. Urine showed pH 7.0, colorless with blood 1+. U tox was negative. Tylenol level negative. Blood alcohol negative. EKG showed sinus rhythm with no acute ST-T changes. QTc 477.-Head CT showed no acute changes. Face CT showed no acute fracture. Chest x-ray showed moderate vascular congestion with edema with edema in lung bases. Cervical spine CT showed osteolytic lesions throughout all vertebrae bodies, focal area of osteopenia. Recommended MRI cervical spine. Chest CT abdomen pelvis showed 4 mm pulmonary nodule right upper lobe. Urinary bladder wall marked thickening with differentials cystitis and bladder cancer not excluded. 06/27/25: In ED, patient was given 2 L of bolus of NS. Urine output calculated to be about 7-8 L over the first few hours of admission. Given desmopressin 4 mcg x 1 due to concern of SIADH. Sodium overcorrected from 121 to 129. Started on D5W at 150 cc/h, increased to 200 cc/h as sodium jumped to 133. Continue to have increased urine output, given another desmopressin 2 mcg x 1. Sodium continue to gradually downtrend overnight to 130. Urine output improved to about 100 cc/h. Patient was seen and examined at bedside. Continues to be confused, A&O x 1 (oriented to self). Able to follow commands and move all 4 extremities. Will continue to monitor urine output, titrate D5W rate based on estimated free water loss in urine. Goal sodium 128-129 by 8 PM. Correct Na 4- 6 mEq every 24 hours to avoid ODS. Spoke with psychiatrist who agrees with holding fluphenazine at this time. Will follow-up on Monday in alf. Also updated medical coordinator Dr. Malloy on patient's condition and plan for treatment, agreeable to plan to hold current medication and will follow up upon discharge. 06/28/2025: Patient was seen and examined at bedside this morning. No acute overnight events. Overnight patient's sodium remained in the 129-130 and was still on the D5W at 100 cc/h is not that 115 cc/h. This morning discontinued patient's D5W as patient is tolerating p.o. diet and on repeat CMP his sodium was 134 at 9:30 AM, per nephrology was okay to let patient sodium correct by itself now as patient is tolerating diet and his sodium was a rate above 130. Patient had significant improvement in mental status and was following all commands today and was AO x 3. Otherwise no other complaints at this time. At this time patient stable enough to be downgraded to the medical floors. Exam Vital Signs Temp Pulse Resp BP Pulse Ox O2 Del Method 98.4 F 64 29 H 110/54 L 100 Room Air 06/28/25 08:00 06/28/25 09:00 06/28/25 09:00 06/28/25 09:00 06/28/25 09:00 06/28/25 04:00 Narrative Exam Gen: A&O X 3, NAD HEENT: NCAT, EOMI, Pupils reactive KRISTAN, not icteric. External ears normal. No rhinorrhea. Moist mucous membranes. Neck: Supple, full range of motion, no observable masses, No meningeal sign. Lungs: No Respiratory distress, clear bilateral. CV: RRR, no murmurs. Abdomen: Soft, nondistended, No rebound tenderness. MSK: No joint swelling, no redness, peripheral pulses presents, lumbar with no edema. Skin: No rashes, petechiae, lesions, ecchymosis in KRISTAN ankles. Neuro: No focal neurological deficits appreciated, sensory and motor intact. Psych: Cooperative, appropriate mood and effect. Objective Labs 06/28/25 04:49 06/28/25 09:25 Labs: Laboratory Results - last 24 hr 06/27/25 06/27/25 06/27/25 10:45 12:45 13:03 WBC RBC Hgb Hct MCV MCH MCHC RDW Std Deviation Plt Count Neut % (Auto) Lymph % (Auto) [place] % (Auto) Eos % (Auto) Baso % (Auto) Neut # (Auto) Lymph # (Auto) [place] # (Auto) Eos # (Auto) Baso # (Auto) Immature Gran # (Auto) Absolute Nucleated RBC Immature Gran % Nucleated RBC % Sodium 130 L 129 L 129 L Potassium 3.5 3.4 3.2 L Chloride 97 L 96 L 95 L Carbon Dioxide 24.9 26.1 25.3 Anion Gap 8 7 9 BUN < 5 L 5 L < 5 L Creatinine 0.8 0.8 0.9 Estim Creat Clear Calc 106.9 106.9 95.0 eGFR > 60 > 60 > 60 BUN/Creatinine Ratio 6 L 6 L 6 L Glucose 90 92 90 Calculated Osmolality 258 L 256 L 256 L Calcium 8.9 8.9 8.3 Corrected Calcium 8.9 8.9 8.3 L Phosphorus Magnesium Total Bilirubin 1.1 1.1 1.1 AST 98 H 80 H 109 H ALT 26 28 28 Alkaline Phosphatase 66 66 62 Total Creatine Kinase Total Protein 6.0 6.0 5.7 Albumin 4.1 4.1 4.0 Globulin 1.9 L 1.9 L 1.7 L Albumin/Globulin Ratio 2.2 2.2 2.4 H 06/27/25 06/27/25 06/28/25 17:29 20:37 01:43 WBC RBC Hgb Hct MCV MCH MCHC RDW Std Deviation Plt Count Neut % (Auto) Lymph % (Auto) [place] % (Auto) Eos % (Auto) Baso % (Auto) Neut # (Auto) Lymph # (Auto) [place] # (Auto) Eos # (Auto) Baso # (Auto) Immature Gran # (Auto) Absolute Nucleated RBC Immature Gran % Nucleated RBC % Sodium 130 L 129 L 130 L Potassium 3.6 3.7 3.6 Chloride 96 L 97 L 97 L Carbon Dioxide 26.4 23.5 24.6 Anion Gap 8 9 8 BUN 6 L 5 L 6 L Creatinine 0.9 0.9 0.9 Estim Creat Clear Calc 95.0 95.0 95.0 eGFR > 60 > 60 > 60 BUN/Creatinine Ratio 7 L 6 L 7 L Glucose 67 L 93 91 Calculated Osmolality 256 L 256 L 258 L Calcium 8.5 8.6 8.2 L Corrected Calcium 8.5 8.7 8.2 L Phosphorus Magnesium Total Bilirubin 1.1 0.9 1.0 AST 121 H 115 H 117 H ALT 31 29 30 Alkaline Phosphatase 64 63 65 Total Creatine Kinase 6057 H D Total Protein 5.9 5.7 5.6 L Albumin 4.3 3.9 4.0 Globulin 1.6 L 1.8 L 1.6 L Albumin/Globulin Ratio 2.7 H 2.2 2.5 H 06/28/25 06/28/25 06/28/25 04:49 04:49 04:49 WBC 6.7 D RBC 3.72 L Hgb 11.4 L Hct 31.9 L MCV 86 MCH 30.6 MCHC 35.7 RDW Std Deviation 41.9 Plt Count 185 Neut % (Auto) 74 Lymph % (Auto) 14 [place] % (Auto) 10 Eos % (Auto) 1 Baso % (Auto) 1 Neut # (Auto) 5.0 Lymph # (Auto) 1.0 [place] # (Auto) 0.7 Eos # (Auto) 0.1 Baso # (Auto) 0.0 Immature Gran # (Auto) 0.02 H Absolute Nucleated RBC 0.00 Immature Gran % 0 Nucleated RBC % 0 Sodium 129 L Cancelled Potassium 3.7 Cancelled Chloride 97 L Carbon Dioxide Anion Gap BUN Creatinine Estim Creat Clear Calc eGFR BUN/Creatinine Ratio Glucose Calculated Osmolality Calcium Corrected Calcium Phosphorus Magnesium Total Bilirubin AST ALT Alkaline Phosphatase Total Creatine Kinase Total Protein Albumin Globulin Albumin/Globulin Ratio 06/28/25 06/28/25 06/28/25 04:49 04:49 04:49 WBC RBC Hgb Hct MCV MCH MCHC RDW Std Deviation Plt Count Neut % (Auto) Lymph % (Auto) [place] % (Auto) Eos % (Auto) Baso % (Auto) Neut # (Auto) Lymph # (Auto) [place] # (Auto) Eos # (Auto) Baso # (Auto) Immature Gran # (Auto) Absolute Nucleated RBC Immature Gran % Nucleated RBC % Sodium Potassium Chloride Cancelled Carbon Dioxide 25.4 Cancelled Anion Gap 7 Cancelled BUN 6 L Creatinine Estim Creat Clear Calc eGFR BUN/Creatinine Ratio Glucose Calculated Osmolality Calcium Corrected Calcium Phosphorus Magnesium Total Bilirubin AST ALT Alkaline Phosphatase Total Creatine Kinase Total Protein Albumin Globulin Albumin/Globulin Ratio 06/28/25 06/28/25 06/28/25 04:49 04:49 04:49 WBC RBC Hgb Hct MCV MCH MCHC RDW Std Deviation Plt Count Neut % (Auto) Lymph % (Auto) [place] % (Auto) Eos % (Auto) Baso % (Auto) Neut # (Auto) Lymph # (Auto) [place] # (Auto) Eos # (Auto) Baso # (Auto) Immature Gran # (Auto) Absolute Nucleated RBC Immature Gran % Nucleated RBC % Sodium Potassium Chloride Carbon Dioxide Anion Gap BUN Cancelled Creatinine 1.0 Cancelled Estim Creat Clear Calc 83.0 Cancelled eGFR > 60 BUN/Creatinine Ratio Glucose Calculated Osmolality Calcium Corrected Calcium Phosphorus Magnesium Total Bilirubin AST ALT Alkaline Phosphatase Total Creatine Kinase Total Protein Albumin Globulin Albumin/Globulin Ratio 1106/28/25 06/28/25 04:49 04:49 04:49 WBC RBC Hgb Hct MCV MCH MCHC RDW Std Deviation Plt Count Neut % (Auto) Lymph % (Auto) [place] % (Auto) Eos % (Auto) Baso % (Auto) Neut # (Auto) Lymph # (Auto) [place] # (Auto) Eos # (Auto) Baso # (Auto) Immature Gran # (Auto) Absolute Nucleated RBC Immature Gran % Nucleated RBC % Sodium Potassium Chloride Carbon Dioxide Anion Gap BUN Creatinine Estim Creat Clear Calc eGFR Cancelled BUN/Creatinine Ratio 6 L Cancelled Glucose 87 Cancelled Calculated Osmolality 255 L Calcium Corrected Calcium Phosphorus Magnesium Total Bilirubin AST ALT Alkaline Phosphatase Total Creatine Kinase Total Protein Albumin Globulin Albumin/Globulin Ratio 06/28/25 06/28/25 06/28/25 04:49 04:49 04:49 WBC RBC Hgb Hct MCV MCH MCHC RDW Std Deviation Plt Count Neut % (Auto) Lymph % (Auto) [place] % (Auto) Eos % (Auto) Baso % (Auto) Neut # (Auto) Lymph # (Auto) [place] # (Auto) Eos # (Auto) Baso # (Auto) Immature Gran # (Auto) Absolute Nucleated RBC Immature Gran % Nucleated RBC % Sodium Potassium Chloride Carbon Dioxide Anion Gap BUN Creatinine Estim Creat Clear Calc eGFR BUN/Creatinine Ratio Glucose Calculated Osmolality Cancelled Calcium 8.6 Cancelled Corrected Calcium 8.6 Cancelled Phosphorus 3.0 Magnesium 2.0 Total Bilirubin 1.0 AST ALT Alkaline Phosphatase Total Creatine Kinase Total Protein Albumin Globulin Albumin/Globulin Ratio 06/28/25 06/28/25 06/28/25 04:49 04:49 04:49 WBC RBC Hgb Hct MCV MCH MCHC RDW Std Deviation Plt Count Neut % (Auto) Lymph % (Auto) [place] % (Auto) Eos % (Auto) Baso % (Auto) Neut # (Auto) Lymph # (Auto) [place] # (Auto) Eos # (Auto) Baso # (Auto) Immature Gran # (Auto) Absolute Nucleated RBC Immature Gran % Nucleated RBC % Sodium Potassium Chloride Carbon Dioxide Anion Gap BUN Creatinine Estim Creat Clear Calc eGFR BUN/Creatinine Ratio Glucose Calculated Osmolality Calcium Corrected Calcium Phosphorus Magnesium Total Bilirubin Cancelled AST 124 H Cancelled ALT 31 Cancelled Alkaline Phosphatase 61 Total Creatine Kinase Total Protein Albumin Globulin Albumin/Globulin Ratio 06/28/25 06/28/25 06/28/25 04:49 04:49 04:49 WBC RBC Hgb Hct MCV MCH MCHC RDW Std Deviation Plt Count Neut % (Auto) Lymph % (Auto) [place] % (Auto) Eos % (Auto) Baso % (Auto) Neut # (Auto) Lymph # (Auto) [place] # (Auto) Eos # (Auto) Baso # (Auto) Immature Gran # (Auto) Absolute Nucleated RBC Immature Gran % Nucleated RBC % Sodium Potassium Chloride Carbon Dioxide Anion Gap BUN Creatinine Estim Creat Clear Calc eGFR BUN/Creatinine Ratio Glucose Calculated Osmolality Calcium Corrected Calcium Phosphorus Magnesium Total Bilirubin AST ALT Alkaline Phosphatase Cancelled Total Creatine Kinase Total Protein 5.7 Cancelled Albumin 4.0 Cancelled Globulin 1.7 L Albumin/Globulin Ratio 06/28/25 06/28/25 06/28/25 04:49 04:49 09:25 WBC RBC Hgb Hct MCV MCH MCHC RDW Std Deviation Plt Count Neut % (Auto) Lymph % (Auto) [place] % (Auto) Eos % (Auto) Baso % (Auto) Neut # (Auto) Lymph # (Auto) [place] # (Auto) Eos # (Auto) Baso # (Auto) Immature Gran # (Auto) Absolute Nucleated RBC Immature Gran % Nucleated RBC % Sodium 134 L Potassium 3.3 L Chloride 98 Carbon Dioxide 24.6 Anion Gap 11 BUN 6 L Creatinine 1.0 Estim Creat Clear Calc 83.0 eGFR > 60 BUN/Creatinine Ratio 6 L Glucose 87 Calculated Osmolality 264 L Calcium 8.7 Corrected Calcium 8.7 Phosphorus Magnesium Total Bilirubin 0.9 AST 124 H ALT 31 Alkaline Phosphatase 62 Total Creatine Kinase Total Protein 5.7 Albumin 4.1 Globulin Cancelled 1.6 L Albumin/Globulin Ratio 2.4 H Cancelled 2.6 H ABG Interpretation ABG results: 06/26/25 20:36 ABG pH 7.45 ABG pCO2 37 ABG pO2 69 L ABG HCO3 26 ABG O2 Saturation 95 ABG Base Excess 2 Quality Measures Quality Measures VTE prophylaxis (Heparin SC ) Assessment & Plan Assessment Current Active Medications: Generic Name Dose Route Start Last Admin Trade Name Freq PRN Reason Stop Dose Admin Acetaminophen 650 mg 06/26/25 23:59 Acetaminophen 325 Mg Tablet PO 07/26/25 23:58 Q6H PRN Fever >100.4 or pain 1-3 Docusate Sodium 100 mg 06/27/25 09:00 06/28/25 08:38 Docusate Sod 100 Mg Capsule PO 07/27/25 08:59 100 mg QDAY RIKKI Administration Protocol Heparin Sodium (Porcine) 5,000 unit 06/27/25 09:00 06/28/25 08:38 Heparin Sod Inj 5000 Unit/Ml Vial SC 07/11/25 08:59 5,000 unit Q12HR RIKKI Administration Levetiracetam 1,000 mg 06/27/25 09:00 06/28/25 08:38 Levetiracetam Inj 100 Mg/Ml Vial 5ml IVP 07/27/25 08:59 1,000 mg Q12HR RIKKI Administration Lorazepam 4 mg 06/27/25 01:24 Lorazepam 2 Mg/Ml Vial IVP 07/02/25 01:23 Q15MIN PRN Breakthrough seizure Non-Formulary Medication 5 mg 06/28/25 11:15 Fluphenazine Hcl PO 07/28/25 11:14 BID RIKKI Plan Patient is a 49-year-old male with past medical history of schizophrenia on fluphenazine was brought in by EMS from alf on 06/26/25 with chief complaint of altered mental status with drooling and urine incontinence with flaccid weakness in upper extremities and post ictal confusion. Baseline AO x 3. 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 Per RN in alf patient had drooling and upper extremity flaccid weakness +drooling with bowel and bladder incontinence.Patient fell and water was found on the floor. Patient remained in postictal confusion and route to the ED. GCS 8 on arrival improved to 11. -Head CT showed no acute changes. -Face CT showed no acute fracture. -Chest x-ray showed moderate vascular congestion with edema in lung bases. -Cervical spine CT showed osteolytic lesions throughout all vertebrae bodies, focal area of osteopenia. Recommended MRI cervical spine. -EKG showed sinus rhythm with QTc 477. No acute ST-T changes. -Blood glucose 121. U tox was negative. Serum sodium 121 on admission. -ABG showed pH 7.45, pCO2 37, pO2 69. FiO2 21%. Treatment: - S/p 2 g Keppra IV x 1 and 2 L bolus of NS x 1 in the ED. - S/p D5W at 100 cc/hr due to rapid overcorrection of sodium - Keppra 1 g IV twice daily to prevent any further seizures - Ativan 4 mg every 15 minutes as needed for breakthrough seizure -Due to rapid correction of sodium, started on D5W at 100 cc and desmopressin 4 mcg given x 1 -Seizure precautions and aspiration precaution Treatment follow-up: - CMP Q2hr, change to Q4hr and goal sodium for today at 8pm should be around 136-137, unless otherwise indicated by nephrology - Consider discontinuing keppra as seizure likely secondary to hyponatremia and resolution of hyponatremia increases threshold for seizures due to hyponatremia Cardiovascular #Hypotension due to hypovolemia (resolved) Respiratory #Pulm Nodule, incidental finding per CT Diagnostic workup: -Chest CT abdomen pelvis showed 4 mm pulmonary nodule right upper lobe. Urinary bladder wall marked thickening with differentials cystitis and bladder cancer not excluded. Treatment: -no acute management Treatment follow-up: -outpatient follow up for monitoring size with CT in 6 months GI #Mild Hepatitis and Elevated T. bili, resolved Diagnostic workup: -AST 61--> 124 ,T Kristan: 1.7---> 0.9 -CT abdomen was unable to visualize gallbladder -Etoh negative . acetaminophen negative -Hep panel negative Treatment: -No acute intervention Treatment follow-up: -Trend LFTs Renal #Hypervolemic hypoosmotic hyponatremia, symptomatic, (resolved), 2/2 primary polydipsia Diagnostic workup: - Presented from alf with c/c AMS and seizure with postictal confusion. Found surrounded by water. Baseline mentation is AO x 3. No history of previous seizures. - Patient recently started on Prolixin 5 mg twice daily for schizophrenia. Follows with Dr. Villavicencio who is patient's psychiatrist. - No recent changes in the medication. No non-compliance reported. - On admission, sodium 121 -> 133 -> 130 -> 129, serum osmolarity 241, urine osmolarity estimated 90-120. - Due to rapid correction, desmopressin 4 mcg given x 1, desmopressin 2mcg x1 later around 4 am and started D5W at 100 cc/h. - Ordered desmopressin 2 mcg q6h rikki starting @ 7 am to bring goal of sodium to 126 in 24 h today at 20:00 - Urine output> 8 L diluted urine in response to primary polydipsia. Urine output normalized to about 100 cc/hr. - Urine electrolytes showed Na<15, Cl <20, K<10, Cr<20 - According to studies, primary polydipsia has been described in patients with schizophrenia spectrum disorder with an incidence of 11 to 20% Treatment: - S/P D5W as patient was at goal at 8 pm and since then did not increase - Nephrology consulted and stated okay to let patient's correct by itself at this time as he is tolerating PO diet - Avoid keepingwater cups or pitchers close by patient except with meals and medications. Treatment follow up: - Q4hr Na checks and goal Na 136-137 by 8pm unless otherwise stated by nephrology #Rhabdomyolysis DDx: Seizures Diagnostic workup: - Found in confused state with flaccid paralysis of upper extremities. - Creatinine kinase 2249 -> 3466--> 6057 Treatment: - Discontinued D5W - Encourage oral hydration Treatment follow-up: - Consider repeat CK - Monitor for seizure activity #Lactic acidosis type A (resolved) DDx: Hypotension due to volume loss DI Diagnostic workup: -Lactic acid 2.5 -> 1.4 - S/p 2L bolus in ED. Treatment: -S/P D5W -Encourage oral hydration Heme #Microcytic normocytic anemia Diagnostic workup: -Hemoglobin 13.1--> 11.4, could be hemodilution Treatment: -No acute management as there is no signs of active bleeding Treatment follow up: - Daily CBC - outpatient anemia work up #Leukocytosis, reactive Ddx: seizure Diagnostic work up: -WBC 15.4-->6.7 - Afebrile - UA negative Treatment: -No signs of acute infection Treatment follow up: -Daily CBC Endo none MSK #Osteolytic lesions over vertebral bodies Incidental finding on CT cervical Diagnostic work up: -Cervical spine CT showed osteolytic lesions throughout all vertebrae bodies, focal area of osteopenia. Advanced disc narrowing C4-C5, fusion C5-C6 -Serum corrected calcium 8.9 Treatment: -No active intervention Treatment follow up: -Recommend outpatient follow up ID No active issue ICU Health maintenance: Mechanical ventilation: no Sedation: no Diet: regular DVT prophylaxis: Heparin SQ GI prophylaxis: none Taylor: none Lines: PIV Antibiotics: none CODE STATUS: FULL Case disclosed with Attending Dr. Bryanna Prieto PGY2 Disclaimer: Even though this this note was dictated by speech recognition and even though it was carefully revised there may still be minor errors in manufacturing specialist due to voice recognition software.
[2025-06-28] MEDS: POTASSIUM CHLORIDE 10% 20 MEQ/15 ML UDC 40 MEQ PO (11:46)
--- NOTE | 2025-06-28 12:11 | PD.RESPRO ---
Documentation for date of: 06/28/25 Subjective Subjective Interval history: This patient is a 49-year-old male with past medical history of schizophrenia on fluphenazine was brought in by EMS from [facility]( [facility]) on 06/26/25 with chief complaint of altered mental status with drooling and urine incontinence with flaccid weakness in upper extremities and post ictal confusion. Admitted for hyponatremia work up. His baseline AO x 3. Per RN who works in [facility] reported that patient fell and they found water on floor. Patient was not responding to painful stimuli was exhibiting right and left upper extremity flaccid weakness associated with drooling and urine incontinence. He was nonverbal and appeared in postictal confusion. Initially, In [facility] evaluated and was concern on catatonia however patient continued to remain in postictal confusion therefore he he was brought in to the ED via EMS. RN reported that patient is in single cell due to his mental health issue i.e schizophrenia. Patient takes only 1 medication (fluphenazine) prescribed by his psychiatrist can be contacted on [phone] Dr. Villavicencio. She stated that patient did not had any history of seizures and this is her first episode as well.He had no recent fever or infection in past 48 hours. GCS on arrival was 8. Vitals showed BP 123/73 Pulse 80, oxygen saturation 97% on nasal cannula and blood sugar 117 mg/dL. 06/27/25: Nephrology consulted for symptomatic hyponatremia. In ED, sodium overcorrected from 121 to 129 within 4 hours likely 2/2 2 L of normal saline in ED. D5W was started to decrease sodium. Patient seen examined in ICU, asleep. Given dilute urine and continued correction of sodium this a.m. following NS boluses last night, leading differential polydipsia causing hyponatremia thus inciting seizure. Continue D5W with goal sodium 126 by 8 p.m. tonight and desmopressin 1 mcg twice daily. 06/28/25: Patient seen and examined at bedside in ICU. Patient is feeling well today, no complaints. Denies increased water intake. D5W and desmopressin discontinued due to adequate correction of hyponatremia. From renal standpoint patient is cleared to be discharged with fluid restriction. Exam Vital Signs Temp Pulse Resp BP Pulse Ox O2 Del Method 98.4 F 64 29 H 110/54 L 100 Room Air 06/28/25 08:00 06/28/25 09:00 06/28/25 09:00 06/28/25 09:00 06/28/25 09:00 06/28/25 04:00 Narrative Exam GENERAL: AOx3, no acute distress HEENT: mucous membranes moist, bilateral sclera anicteric CARDIOVASCULAR: regular rate and rhythm, S1/S2 present, no murmurs appreciated PULMONARY: clear to auscultation bilaterally, no rales/rhonchi/wheezes ABDOMINAL: soft, non-tender, non-distended, no rebound/guarding, bowel sounds present EXTREMITIES: no peripheral edema SKIN: warm and dry, intact, no rashes NEURO: CN II-XII grossly intact, no focal deficits, alert, following commands Objective Labs 06/29/25 05:14 06/29/25 05:14 Labs: Laboratory Results - last 24 hr 06/27/25 06/27/25 06/27/25 12:45 13:03 17:29 WBC RBC Hgb Hct MCV MCH MCHC RDW Std Deviation Plt Count Neut % (Auto) Lymph % (Auto) [place] % (Auto) Eos % (Auto) Baso % (Auto) Neut # (Auto) Lymph # (Auto) [place] # (Auto) Eos # (Auto) Baso # (Auto) Immature Gran # (Auto) Absolute Nucleated RBC Immature Gran % Nucleated RBC % Sodium 129 L 129 L 130 L Potassium 3.4 3.2 L 3.6 Chloride 96 L 95 L 96 L Carbon Dioxide 26.1 25.3 26.4 Anion Gap 7 9 8 BUN 5 L < 5 L 6 L Creatinine 0.8 0.9 0.9 Estim Creat Clear Calc 106.9 95.0 95.0 eGFR > 60 > 60 > 60 BUN/Creatinine Ratio 6 L 6 L 7 L Glucose 92 90 67 L Calculated Osmolality 256 L 256 L 256 L Calcium 8.9 8.3 8.5 Corrected Calcium 8.9 8.3 L 8.5 Phosphorus Magnesium Total Bilirubin 1.1 1.1 1.1 AST 80 H 109 H 121 H ALT 28 28 31 Alkaline Phosphatase 66 62 64 Total Creatine Kinase 6057 H D Total Protein 6.0 5.7 5.9 Albumin 4.1 4.0 4.3 Globulin 1.9 L 1.7 L 1.6 L Albumin/Globulin Ratio 2.2 2.4 H 2.7 H 06/27/25 06/28/25 06/28/25 20:37 01:43 04:49 WBC 6.7 D RBC 3.72 L Hgb 11.4 L Hct 31.9 L MCV 86 MCH 30.6 MCHC 35.7 RDW Std Deviation 41.9 Plt Count 185 Neut % (Auto) 74 Lymph % (Auto) 14 [place] % (Auto) 10 Eos % (Auto) 1 Baso % (Auto) 1 Neut # (Auto) 5.0 Lymph # (Auto) 1.0 [place] # (Auto) 0.7 Eos # (Auto) 0.1 Baso # (Auto) 0.0 Immature Gran # (Auto) 0.02 H Absolute Nucleated RBC 0.00 Immature Gran % 0 Nucleated RBC % 0 Sodium 129 L 130 L 129 L Potassium 3.7 3.6 Chloride 97 L 97 L Carbon Dioxide 23.5 24.6 Anion Gap 9 8 BUN 5 L 6 L Creatinine 0.9 0.9 Estim Creat Clear Calc 95.0 95.0 eGFR > 60 > 60 BUN/Creatinine Ratio 6 L 7 L Glucose 93 91 Calculated Osmolality 256 L 258 L Calcium 8.6 8.2 L Corrected Calcium 8.7 8.2 L Phosphorus Magnesium Total Bilirubin 0.9 1.0 AST 115 H 117 H ALT 29 30 Alkaline Phosphatase 63 65 Total Creatine Kinase Total Protein 5.7 5.6 L Albumin 3.9 4.0 Globulin 1.8 L 1.6 L Albumin/Globulin Ratio 2.2 2.5 H 06/28/25 06/28/25 06/28/25 04:49 04:49 04:49 WBC RBC Hgb Hct MCV MCH MCHC RDW Std Deviation Plt Count Neut % (Auto) Lymph % (Auto) [place] % (Auto) Eos % (Auto) Baso % (Auto) Neut # (Auto) Lymph # (Auto) [place] # (Auto) Eos # (Auto) Baso # (Auto) Immature Gran # (Auto) Absolute Nucleated RBC Immature Gran % Nucleated RBC % Sodium Cancelled Potassium 3.7 Cancelled Chloride 97 L Cancelled Carbon Dioxide 25.4 Anion Gap BUN Creatinine Estim Creat Clear Calc eGFR BUN/Creatinine Ratio Glucose Calculated Osmolality Calcium Corrected Calcium Phosphorus Magnesium Total Bilirubin AST ALT Alkaline Phosphatase Total Creatine Kinase Total Protein Albumin Globulin Albumin/Globulin Ratio 06/28/25 06/28/25 06/28/25 04:49 04:49 04:49 WBC RBC Hgb Hct MCV MCH MCHC RDW Std Deviation Plt Count Neut % (Auto) Lymph % (Auto) [place] % (Auto) Eos % (Auto) Baso % (Auto) Neut # (Auto) Lymph # (Auto) [place] # (Auto) Eos # (Auto) Baso # (Auto) Immature Gran # (Auto) Absolute Nucleated RBC Immature Gran % Nucleated RBC % Sodium Potassium Chloride Carbon Dioxide Cancelled Anion Gap 7 Cancelled BUN 6 L Cancelled Creatinine 1.0 Estim Creat Clear Calc eGFR BUN/Creatinine Ratio Glucose Calculated Osmolality Calcium Corrected Calcium Phosphorus Magnesium Total Bilirubin AST ALT Alkaline Phosphatase Total Creatine Kinase Total Protein Albumin Globulin Albumin/Globulin Ratio 06/28/25 06/28/25 06/28/25 04:49 04:49 04:49 WBC RBC Hgb Hct MCV MCH MCHC RDW Std Deviation Plt Count Neut % (Auto) Lymph % (Auto) [place] % (Auto) Eos % (Auto) Baso % (Auto) Neut # (Auto) Lymph # (Auto) [place] # (Auto) Eos # (Auto) Baso # (Auto) Immature Gran # (Auto) Absolute Nucleated RBC Immature Gran % Nucleated RBC % Sodium Potassium Chloride Carbon Dioxide Anion Gap BUN Creatinine Cancelled Estim Creat Clear Calc 83.0 Cancelled eGFR > 60 Cancelled BUN/Creatinine Ratio 6 L Glucose Calculated Osmolality Calcium Corrected Calcium Phosphorus Magnesium Total Bilirubin AST ALT Alkaline Phosphatase Total Creatine Kinase Total Protein Albumin Globulin Albumin/Globulin Ratio 06/28/25 06/28/25 06/28/25 04:49 04:49 04:49 WBC RBC Hgb Hct MCV MCH MCHC RDW Std Deviation Plt Count Neut % (Auto) Lymph % (Auto) [place] % (Auto) Eos % (Auto) Baso % (Auto) Neut # (Auto) Lymph # (Auto) [place] # (Auto) Eos # (Auto) Baso # (Auto) Immature Gran # (Auto) Absolute Nucleated RBC Immature Gran % Nucleated RBC % Sodium Potassium Chloride Carbon Dioxide Anion Gap BUN Creatinine Estim Creat Clear Calc eGFR BUN/Creatinine Ratio Cancelled Glucose 87 Cancelled Calculated Osmolality 255 L Cancelled Calcium 8.6 Corrected Calcium Phosphorus Magnesium Total Bilirubin AST ALT Alkaline Phosphatase Total Creatine Kinase Total Protein Albumin Globulin Albumin/Globulin Ratio 06/28/25 06/28/25 06/28/25 04:49 04:49 04:49 WBC RBC Hgb Hct MCV MCH MCHC RDW Std Deviation Plt Count Neut % (Auto) Lymph % (Auto) [place] % (Auto) Eos % (Auto) Baso % (Auto) Neut # (Auto) Lymph # (Auto) [place] # (Auto) Eos # (Auto) Baso # (Auto) Immature Gran # (Auto) Absolute Nucleated RBC Immature Gran % Nucleated RBC % Sodium Potassium Chloride Carbon Dioxide Anion Gap BUN Creatinine Estim Creat Clear Calc eGFR BUN/Creatinine Ratio Glucose Calculated Osmolality Calcium Cancelled Corrected Calcium 8.6 Cancelled Phosphorus 3.0 Magnesium 2.0 Total Bilirubin 1.0 Cancelled AST 124 H ALT Alkaline Phosphatase Total Creatine Kinase Total Protein Albumin Globulin Albumin/Globulin Ratio 06/28/25 06/28/25 06/28/25 04:49 04:49 04:49 WBC RBC Hgb Hct MCV MCH MCHC RDW Std Deviation Plt Count Neut % (Auto) Lymph % (Auto) [place] % (Auto) Eos % (Auto) Baso % (Auto) Neut # (Auto) Lymph # (Auto) [place] # (Auto) Eos # (Auto) Baso # (Auto) Immature Gran # (Auto) Absolute Nucleated RBC Immature Gran % Nucleated RBC % Sodium Potassium Chloride Carbon Dioxide Anion Gap BUN Creatinine Estim Creat Clear Calc eGFR BUN/Creatinine Ratio Glucose Calculated Osmolality Calcium Corrected Calcium Phosphorus Magnesium Total Bilirubin AST Cancelled ALT 31 Cancelled Alkaline Phosphatase 61 Cancelled Total Creatine Kinase Total Protein 5.7 Albumin Globulin Albumin/Globulin Ratio 06/28/25 06/28/25 06/28/25 04:49 04:49 04:49 WBC RBC Hgb Hct MCV MCH MCHC RDW Std Deviation Plt Count Neut % (Auto) Lymph % (Auto) [place] % (Auto) Eos % (Auto) Baso % (Auto) Neut # (Auto) Lymph # (Auto) [place] # (Auto) Eos # (Auto) Baso # (Auto) Immature Gran # (Auto) Absolute Nucleated RBC Immature Gran % Nucleated RBC % Sodium Potassium Chloride Carbon Dioxide Anion Gap BUN Creatinine Estim Creat Clear Calc eGFR BUN/Creatinine Ratio Glucose Calculated Osmolality Calcium Corrected Calcium Phosphorus Magnesium Total Bilirubin AST ALT Alkaline Phosphatase Total Creatine Kinase Total Protein Cancelled Albumin 4.0 Cancelled Globulin 1.7 L Cancelled Albumin/Globulin Ratio 2.4 H 06/28/25 06/28/25 04:49 09:25 WBC RBC Hgb Hct MCV MCH MCHC RDW Std Deviation Plt Count Neut % (Auto) Lymph % (Auto) [place] % (Auto) Eos % (Auto) Baso % (Auto) Neut # (Auto) Lymph # (Auto) [place] # (Auto) Eos # (Auto) Baso # (Auto) Immature Gran # (Auto) Absolute Nucleated RBC Immature Gran % Nucleated RBC % Sodium 134 L Potassium 3.3 L Chloride 98 Carbon Dioxide 24.6 Anion Gap 11 BUN 6 L Creatinine 1.0 Estim Creat Clear Calc 83.0 eGFR > 60 BUN/Creatinine Ratio 6 L Glucose 87 Calculated Osmolality 264 L Calcium 8.7 Corrected Calcium 8.7 Phosphorus Magnesium Total Bilirubin 0.9 AST 124 H ALT 31 Alkaline Phosphatase 62 Total Creatine Kinase Total Protein 5.7 Albumin 4.1 Globulin 1.6 L Albumin/Globulin Ratio Cancelled 2.6 H ABG Interpretation ABG results: 06/26/25 20:36 ABG pH 7.45 ABG pCO2 37 ABG pO2 69 L ABG HCO3 26 ABG O2 Saturation 95 ABG Base Excess 2 Quality Measures Quality Measures VTE prophylaxis (Heparin SC ) Assessment & Plan Assessment Current Active Medications: Generic Name Dose Route Start Last Admin Trade Name Freq PRN Reason Stop Dose Admin Acetaminophen 650 mg 06/26/25 23:59 Acetaminophen 325 Mg Tablet PO 07/26/25 23:58 Q6H PRN Fever >100.4 or pain 1-3 Docusate Sodium 100 mg 06/27/25 09:00 06/28/25 08:38 Docusate Sod 100 Mg Capsule PO 07/27/25 08:59 100 mg QDAY LIZET Administration Protocol Heparin Sodium (Porcine) 5,000 unit 06/27/25 09:00 06/28/25 08:38 Heparin Sod Inj 5000 Unit/Ml Vial SC 07/11/25 08:59 5,000 unit Q12HR LIZET Administration Levetiracetam 1,000 mg 06/27/25 09:00 06/28/25 08:38 Levetiracetam Inj 100 Mg/Ml Vial 5ml IVP 07/27/25 08:59 1,000 mg Q12HR LIZET Administration Lorazepam 4 mg 06/27/25 01:24 Lorazepam 2 Mg/Ml Vial IVP 07/02/25 01:23 Q15MIN PRN Breakthrough seizure Non-Formulary Medication 5 mg 06/28/25 11:15 Fluphenazine Hcl PO 07/28/25 11:14 BID LIZET Plan Evan Byrd 49M pmhx significant for schizophrenia on fluphenazine was brought in by EMS from [facility]( [facility]) on 06/26/25 with chief complaint of altered mental status with drooling and urine incontinence with flaccid weakness in upper extremities and post ictal confusion, admitted for symptomatic hyponatremia. #Symptomatic hyponatremia #Hx of schizophrenia Presented post seizure and further hx on admission unable to be obtained due to postictal state. On fluphenazine. On admission, Na 120. [place] Na<15, Cl <20, K<10, Cr<20 Ddx: Given dilute urine and continued correction of sodium this a.m. following NS boluses in ED, leading differential polydipsia causing hyponatremia thus inciting seizure as patient also has very good output after stopping the fluids vs SIADH component 09/15 fluphenazine with polydipsia Plan: - D5W and desmopressin discontinued due to adequate correction of hyponatremia - Cleared to be discharged with fluid restriction - Strict I&Os #Acute encephalopathy #Seizure #Hypotension due to hypovolemia #Pulm Nodule, incidental finding per CT #Mild Hepatitis and Elevated T. 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 Plan of care discussed with attending Dr. Al Duncan, DO PGY-1 Internal Medicine Attending Provider Attestation/Addendum Patient seen and examined with resident physician Dr. Duncan. Note reviewed, agree with findings and recommendations. Admitted with seizure, hyponatremia. With fluid restriction his sodium improved. Plan for discharge possibly tomorrow. Will be out of ICU today
--- NOTE | 2025-06-28 12:54 | PC.NURSE ---
Spoke with [facility] regarding patients fluphenazine medication, which we do not carry and our need to have it brought over. They said they will consult their policy in regards to sending medication outside of the care home. MD lopez
--- NOTE | 2025-06-28 15:35 | ESPR_ITS ---
<Statement entered by Edmar Bermudez MD - 06/29/25 08:56> Patient was seen and examined at bedside. I agree on the assessment and plan on this note as documented by resident Dr Jose Antonio Salas DO PGY1. 49-year-old male with past medical history of schizophrenia admitted to ICU after presenting with a chief complaint of altered mental status urine incontinence flaccid weakness in upper extremities and postictal confusion status post witnessed seizure. Patient electrolyte workup in ED was significant for sodium 121, patient was admitted to intensive care unit, was started on desmopressin and D5W to avoid rapid overcorrection, sodium was corrected with the goal of 46 in 24 hours. Patient downgraded with sodium 134 to medical floors after ICU management. 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 Initial plan to discharge patient back to [facility] facility physician requesting additional observation, will observe patient overnight and repeat sodium levels in a.m. Otherwise workup significant for rhabdomyolysis, which improved. Patient also has finding of 4 mm pulmonary nodule right upper lobe, bladder thickening will require cystoscopy outpatient and also lytic lesion findings on vertebral bodies for which patient will need to follow outpatient. Patient is stable, will continue to observe overnight. Case discussed with attending Dr. Beth Isaacs MD PGY-2 Documentation for date of: 06/28/25 Subjective Subjective Interval history: A 49-year-old male with schizophrenia, on fluphenazine, was brought to the ED after experiencing altered mental status, drooling, urinary incontinence, and flaccid weakness following a [facility] in a [facility] facility. He was nonverbal, unresponsive to painful stimuli, and appeared in postictal confusion. The correction nurse reported the fall, and initial evaluation suggested possible catatonia, but the patient's condition did not improve. On arrival to the ED, his vital signs were stable, and he was found to have mild leukocytosis, low sodium (121), elevated creatine kinase, and an unremarkable chest X-ray. Imaging showed cervical spine osteolytic lesions, a pulmonary nodule, and bladder wall thickening, raising concerns for cystitis or bladder cancer. Given these findings, SIADH and muscle injury were considered, and treatment began with IV fluids and desmopressin. Over the course of the next day, the patient's overcorrected sodium with 2L NS bolus in ED (121 ->129 within 4h) was attempted to be lowered again with IV D5W with close adjustments in its continuous rate of infusion and desmopressin. His urine output was closely monitored, and the D5W infusion was adjusted accordingly. By the evening of 06/27, his mental status remained impaired, but he showed some improvement, following commands and moving all extremities. The psychiatric team agreed to hold his fluphenazine temporarily, and the plan was made to continue fluid management and monitor sodium levels, aiming for a target of 128-129 mEq/L. The medical coordinator and psychiatrist were updated on his progress and treatment plan, with follow-up scheduled upon discharge. By 06/28, the patient's sodium level had improved to 134, and his mental status had significantly improved. He was alert and oriented to person, place, and time, and was following all commands. His sodium correction was now stable, and nephrology advised that further adjustments could be managed through his diet. The patient's condition was stable enough to be downgraded to a medical floor for continued monitoring. The psychiatric team agreed to the plan to continue withholding fluphenazine, and follow-up care was arranged. Exam Vital Signs Temp Pulse Resp BP Pulse Ox O2 Del Method 98.6 F 61 7 L 110/58 L 100 Room Air 06/28/25 12:00 06/28/25 12:00 06/28/25 11:06/28/25 12:00 06/28/25 12:00 06/28/25 12:00 Narrative Exam Gen: A&O X 3, NAD HEENT: NCAT, EOMI, Pupils reactive KRISTAN, not icteric. External ears normal. No rhinorrhea. Moist mucous membranes. Neck: Supple, full range of motion, no observable masses, No meningeal sign. Lungs: No Respiratory distress, clear bilateral. CV: RRR, no murmurs. Abdomen: Soft, nondistended, No rebound tenderness. MSK: No joint swelling, no redness, peripheral pulses presents, lumbar with no edema. Skin: No rashes, petechiae, lesions, ecchymosis in KRISTAN ankles. Neuro: No focal neurological deficits appreciated, sensory and motor intact. Psych: Cooperative, appropriate mood and effect. Objective Labs 06/29/25 05:14 06/29/25 05:14 Labs: Laboratory Results - last 24 hr 06/27/25 06/27/25 06/27/25 13:03 17:29 20:37 WBC RBC Hgb Hct MCV MCH MCHC RDW Std Deviation Plt Count Neut % (Auto) Lymph % (Auto) [place] % (Auto) Eos % (Auto) Baso % (Auto) Neut # (Auto) Lymph # (Auto) [place] # (Auto) Eos # (Auto) Baso # (Auto) Immature Gran # (Auto) Absolute Nucleated RBC Immature Gran % Nucleated RBC % Sodium 129 L 130 L 129 L Potassium 3.2 L 3.6 3.7 Chloride 95 L 96 L 97 L Carbon Dioxide 25.3 26.4 23.5 Anion Gap 9 8 9 BUN < 5 L 6 L 5 L Creatinine 0.9 0.9 0.9 Estim Creat Clear Calc 95.0 95.0 95.0 eGFR > 60 > 60 > 60 BUN/Creatinine Ratio 6 L 7 L 6 L Glucose 90 67 L 93 Calculated Osmolality 256 L 256 L 256 L Calcium 8.3 8.5 8.6 Corrected Calcium 8.3 L 8.5 8.7 Phosphorus Magnesium Total Bilirubin 1.1 1.1 0.9 AST 109 H 121 H 115 H ALT 28 31 29 Alkaline Phosphatase 62 64 63 Total Creatine Kinase 6057 H D Total Protein 5.7 5.9 5.7 Albumin 4.0 4.3 3.9 Globulin 1.7 L 1.6 L 1.8 L Albumin/Globulin Ratio 2.4 H 2.7 H 2.2 06/28/25 06/28/25 06/28/25 01:43 04:49 04:49 WBC 6.7 D RBC 3.72 L Hgb 11.4 L Hct 31.9 L MCV 86 MCH 30.6 MCHC 35.7 RDW Std Deviation 41.9 Plt Count 185 Neut % (Auto) 74 Lymph % (Auto) 14 [place] % (Auto) 10 Eos % (Auto) 1 Baso % (Auto) 1 Neut # (Auto) 5.0 Lymph # (Auto) 1.0 [place] # (Auto) 0.7 Eos # (Auto) 0.1 Baso # (Auto) 0.0 Immature Gran # (Auto) 0.02 H Absolute Nucleated RBC 0.00 Immature Gran % 0 Nucleated RBC % 0 Sodium 130 L 129 L Cancelled Potassium 3.6 3.7 Chloride 97 L Carbon Dioxide 24.6 Anion Gap 8 BUN 6 L Creatinine 0.9 Estim Creat Clear Calc 95.0 eGFR > 60 BUN/Creatinine Ratio 7 L Glucose 91 Calculated Osmolality 258 L Calcium 8.2 L Corrected Calcium 8.2 L Phosphorus Magnesium Total Bilirubin 1.0 AST 117 H ALT 30 Alkaline Phosphatase 65 Total Creatine Kinase Total Protein 5.6 L Albumin 4.0 Globulin 1.6 L Albumin/Globulin Ratio 2.5 H 06/28/25 06/28/25 06/28/25 04:49 04:49 04:49 WBC RBC Hgb Hct MCV MCH MCHC RDW Std Deviation Plt Count Neut % (Auto) Lymph % (Auto) [place] % (Auto) Eos % (Auto) Baso % (Auto) Neut # (Auto) Lymph # (Auto) [place] # (Auto) Eos # (Auto) Baso # (Auto) Immature Gran # (Auto) Absolute Nucleated RBC Immature Gran % Nucleated RBC % Sodium Potassium Cancelled Chloride 97 L Cancelled Carbon Dioxide 25.4 Cancelled Anion Gap 7 BUN Creatinine Estim Creat Clear Calc eGFR BUN/Creatinine Ratio Glucose Calculated Osmolality Calcium Corrected Calcium Phosphorus Magnesium Total Bilirubin AST ALT Alkaline Phosphatase Total Creatine Kinase Total Protein Albumin Globulin Albumin/Globulin Ratio 06/28/25 06/28/25 06/28/25 04:49 04:49 04:49 WBC RBC Hgb Hct MCV MCH MCHC RDW Std Deviation Plt Count Neut % (Auto) Lymph % (Auto) [place] % (Auto) Eos % (Auto) Baso % (Auto) Neut # (Auto) Lymph # (Auto) [place] # (Auto) Eos # (Auto) Baso # (Auto) Immature Gran # (Auto) Absolute Nucleated RBC Immature Gran % Nucleated RBC % Sodium Potassium Chloride Carbon Dioxide Anion Gap Cancelled BUN 6 L Cancelled Creatinine 1.0 Cancelled Estim Creat Clear Calc 83.0 eGFR BUN/Creatinine Ratio Glucose Calculated Osmolality Calcium Corrected Calcium Phosphorus Magnesium Total Bilirubin AST ALT Alkaline Phosphatase Total Creatine Kinase Total Protein Albumin Globulin Albumin/Globulin Ratio 06/28/25 06/28/25 06/28/25 04:49 04:49 04:49 WBC RBC Hgb Hct MCV MCH MCHC RDW Std Deviation Plt Count Neut % (Auto) Lymph % (Auto) [place] % (Auto) Eos % (Auto) Baso % (Auto) Neut # (Auto) Lymph # (Auto) [place] # (Auto) Eos # (Auto) Baso # (Auto) Immature Gran # (Auto) Absolute Nucleated RBC Immature Gran % Nucleated RBC % Sodium Potassium Chloride Carbon Dioxide Anion Gap BUN Creatinine Estim Creat Clear Calc Cancelled eGFR > 60 Cancelled BUN/Creatinine Ratio 6 L Cancelled Glucose 87 Calculated Osmolality Calcium Corrected Calcium Phosphorus Magnesium Total Bilirubin AST ALT Alkaline Phosphatase Total Creatine Kinase Total Protein Albumin Globulin Albumin/Globulin Ratio 06/28/25 06/28/25 06/28/25 04:49 04:49 04:49 WBC RBC Hgb Hct MCV MCH MCHC RDW Std Deviation Plt Count Neut % (Auto) Lymph % (Auto) [place] % (Auto) Eos % (Auto) Baso % (Auto) Neut # (Auto) Lymph # (Auto) [place] # (Auto) Eos # (Auto) Baso # (Auto) Immature Gran # (Auto) Absolute Nucleated RBC Immature Gran % Nucleated RBC % Sodium Potassium Chloride Carbon Dioxide Anion Gap BUN Creatinine Estim Creat Clear Calc eGFR BUN/Creatinine Ratio Glucose Cancelled Calculated Osmolality 255 L Cancelled Calcium 8.6 Cancelled Corrected Calcium 8.6 Phosphorus Magnesium Total Bilirubin AST ALT Alkaline Phosphatase Total Creatine Kinase Total Protein Albumin Globulin Albumin/Globulin Ratio 06/28/25 06/28/25 06/28/25 04:49 04:49 04:49 WBC RBC Hgb Hct MCV MCH MCHC RDW Std Deviation Plt Count Neut % (Auto) Lymph % (Auto) [place] % (Auto) Eos % (Auto) Baso % (Auto) Neut # (Auto) Lymph # (Auto) [place] # (Auto) Eos # (Auto) Baso # (Auto) Immature Gran # (Auto) Absolute Nucleated RBC Immature Gran % Nucleated RBC % Sodium Potassium Chloride Carbon Dioxide Anion Gap BUN Creatinine Estim Creat Clear Calc eGFR BUN/Creatinine Ratio Glucose Calculated Osmolality Calcium Corrected Calcium Cancelled Phosphorus 3.0 Magnesium 2.0 Total Bilirubin 1.0 Cancelled AST 124 H Cancelled ALT 31 Alkaline Phosphatase Total Creatine Kinase Total Protein Albumin Globulin Albumin/Globulin Ratio 06/28/25 06/28/25 06/28/25 04:49 04:49 04:49 WBC RBC Hgb Hct MCV MCH MCHC RDW Std Deviation Plt Count Neut % (Auto) Lymph % (Auto) [place] % (Auto) Eos % (Auto) Baso % (Auto) Neut # (Auto) Lymph # (Auto) [place] # (Auto) Eos # (Auto) Baso # (Auto) Immature Gran # (Auto) Absolute Nucleated RBC Immature Gran % Nucleated RBC % Sodium Potassium Chloride Carbon Dioxide Anion Gap BUN Creatinine Estim Creat Clear Calc eGFR BUN/Creatinine Ratio Glucose Calculated Osmolality Calcium Corrected Calcium Phosphorus Magnesium Total Bilirubin AST ALT Cancelled Alkaline Phosphatase 61 Cancelled Total Creatine Kinase Total Protein 5.7 Cancelled Albumin 4.0 Globulin Albumin/Globulin Ratio 06/28/25 06/28/25 06/28/25 04:49 04:49 04:49 WBC RBC Hgb Hct MCV MCH MCHC RDW Std Deviation Plt Count Neut % (Auto) Lymph % (Auto) [place] % (Auto) Eos % (Auto) Baso % (Auto) Neut # (Auto) Lymph # (Auto) [place] # (Auto) Eos # (Auto) Baso # (Auto) Immature Gran # (Auto) Absolute Nucleated RBC Immature Gran % Nucleated RBC % Sodium Potassium Chloride Carbon Dioxide Anion Gap BUN Creatinine Estim Creat Clear Calc eGFR BUN/Creatinine Ratio Glucose Calculated Osmolality Calcium Corrected Calcium Phosphorus Magnesium Total Bilirubin AST ALT Alkaline Phosphatase Total Creatine Kinase Total Protein Albumin Cancelled Globulin 1.7 L Cancelled Albumin/Globulin Ratio 2.4 H Cancelled 06/28/25 09:25 WBC RBC Hgb Hct MCV MCH MCHC RDW Std Deviation Plt Count Neut % (Auto) Lymph % (Auto) [place] % (Auto) Eos % (Auto) Baso % (Auto) Neut # (Auto) Lymph # (Auto) [place] # (Auto) Eos # (Auto) Baso # (Auto) Immature Gran # (Auto) Absolute Nucleated RBC Immature Gran % Nucleated RBC % Sodium 134 L Potassium 3.3 L Chloride 98 Carbon Dioxide 24.6 Anion Gap 11 BUN 6 L Creatinine 1.0 Estim Creat Clear Calc 83.0 eGFR > 60 BUN/Creatinine Ratio 6 L Glucose 87 Calculated Osmolality 264 L Calcium 8.7 Corrected Calcium 8.7 Phosphorus Magnesium Total Bilirubin 0.9 AST 124 H ALT 31 Alkaline Phosphatase 62 Total Creatine Kinase Total Protein 5.7 Albumin 4.1 Globulin 1.6 L Albumin/Globulin Ratio 2.6 H ABG Interpretation ABG results: 06/26/25 20:36 ABG pH 7.45 ABG pCO2 37 ABG pO2 69 L ABG HCO3 26 ABG O2 Saturation 95 ABG Base Excess 2 Quality Measures Quality Measures VTE prophylaxis (Heparin SC ) Assessment & Plan Assessment Current Active Medications: Generic Name Dose Route Start Last Admin Trade Name Freq PRN Reason Stop Dose Admin Acetaminophen 650 mg 06/26/25 23:59 Acetaminophen 325 Mg Tablet PO 07/26/25 23:58 Q6H PRN Fever >100.4 or pain 1-3 Docusate Sodium 100 mg 06/27/25 09:00 06/28/25 08:38 Docusate Sod 100 Mg Capsule PO 07/27/25 08:59 100 mg QDAY RIKKI Administration Protocol Heparin Sodium (Porcine) 5,000 unit 06/27/25 09:00 06/28/25 08:38 Heparin Sod Inj 5000 Unit/Ml Vial SC 07/11/25 08:59 5,000 unit Q12HR RIKKI Administration Levetiracetam 1,000 mg 06/27/25 09:00 06/28/25 08:38 Levetiracetam Inj 100 Mg/Ml Vial 5ml IVP 07/27/25 08:59 1,000 mg Q12HR RIKKI Administration Lorazepam 4 mg 06/27/25 01:24 Lorazepam 2 Mg/Ml Vial IVP 07/02/25 01:23 Q15MIN PRN Breakthrough seizure Non-Formulary Medication 5 mg 06/28/25 11:15 Fluphenazine Hcl PO 07/28/25 11:14 On Hold: 06/28/25 14:57 BID RIKKI Comment: HOLD PER DR. ALBARADO Plan Patient is a 49-year-old male with past medical history of schizophrenia on fluphenazine was brought in by EMS from correction on 06/26/25 with chief complaint of altered mental status with drooling and urine incontinence with flaccid weakness in upper extremities and post ictal confusion. Baseline AO x 3. 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 Found surrounded by water. Baseline mentation is AO x 3. No history of previous seizures. - Patient recently started on Prolixin 5 mg twice daily for schizophrenia. Follows with Dr. Villavicencio who is patient's psychiatrist. - No recent changes in the medication. No non-compliance reported. - On admission, sodium 121 -> 133 -> 130 -> 129, serum osmolarity 241, urine osmolarity estimated 90-120. - Due to rapid correction, desmopressin 4 mcg given x 1, desmopressin 2mcg x1 later around 4 am and started D5W at 100 cc/h. - Ordered desmopressin 2 mcg q6h rikki starting @ 7 am to bring goal of sodium to 126 in 24 h - Due to rapid correction of sodium, started on D5W at 100 cc and desmopressin 4 mcg given x 1 - S/P D5W as patient was at goal at 8 pm and since then did not increase - Urine output> 8 L diluted urine in response to primary polydipsia. Urine output normalized to about 100 cc/hr. ? According to studies, primary polydipsia has been described in patients with schizophrenia spectrum disorder with an incidence of 11 to 20% Plan: - Q4hr Na checks and goal Na 136-137 by 8pm unless otherwise stated by nephrology - Nephrology consulted and stated okay to let patient's correct by itself at this time as he is tolerating PO diet - Avoid keepingwater cups or pitchers close by patient except with meals and medications. #Acute encephalopathy, improving #Seizure, resolved DDx: Hyponatremia, Postictal confusion -Patient presented with altered mental status from correction. Per RN in correction patient had drooling and upper extremity flaccid weakness +drooling with bowel and bladder incontinence.Patient fell and water was found on the floor. Patient remained in postictal confusion and route to the ED. GCS 8 on arrival improved to 11. -Head CT showed no acute changes. -Face CT showed no acute fracture. -Chest x-ray showed moderate vascular congestion with edema in lung bases. -Cervical spine CT showed osteolytic lesions throughout all vertebrae bodies, focal area of osteopenia. Recommended MRI cervical spine. -EKG showed sinus rhythm with QTc 477. No acute ST-T changes. -Blood glucose 121. U tox was negative. Serum sodium 121 on admission. -ABG showed pH 7.45, pCO2 37, pO2 69. FiO2 21%. ? S/p 2 g Keppra IV x 1 and 2 L bolus of NS x 1 in the ED. Treatment: - CMP Q2hr, change to Q4hr and goal sodium for today at 8pm should be around 136-137, unless otherwise indicated by nephrology - Seizure precautions and aspiration precaution - Ativan 4 mg every 15 minutes as needed for breakthrough seizure - Keppra 1 g IV twice daily to prevent any further seizures - Consider discontinuing keppra as seizure likely secondary to hyponatremia #Rhabdomyolysis DDx: Seizures - Found in confused state with flaccid paralysis of upper extremities. - Creatinine kinase 2249 -> 3466--> 6057 Treatment: - Discontinued D5W - Encourage oral hydration - Consider repeat CK - Monitor for seizure activity #Microcytic normocytic anemia -Hemoglobin 13.1--> 11.4, could be hemodilution Treatment: -No acute management as there is no signs of active bleeding - Daily CBC - outpatient anemia work up #Pulm Nodule, incidental finding per CT Chest CT abdomen pelvis showed 4 mm pulmonary nodule right upper lobe. Urinary bladder wall marked thickening with differentials cystitis and bladder cancer not excluded. -outpatient follow up for monitoring size with CT in 6 months #Bladder wall thickening #Osteolytic lesions over vertebral bodies Incidental finding on CT cervical, CT abdomen pelvis also significant for bladder wall thickening ? Cervical spine CT showed osteolytic lesions throughout all vertebrae bodies, focal area of osteopenia. Advanced disc narrowing C4-C5, fusion C5-C6 ? Serum corrected calcium 8.9 -Recommend outpatient follow up #Hypotension (resolved) #Mild Hepatitis and Elevated T. bili, resolved #Leukocytosis, resolved #Lactic acidosis type A, resolved Health maintenance: Diet: regular DVT prophylaxis: Heparin SQ GI prophylaxis: none Taylor: none Lines: PIV Antibiotics: none CODE STATUS: FULL This case was discussed with my attending physician, Dr. Muse, and senior resident, Dr Bermudez. Jose Antonio Chinchilla DO PGY I Disclaimer: This note was dictated by speech recognition. Minor errors in criminal investigator may be present due to voice recognition software. Attending Provider Attestation/Addendum Liset, Beth Muse DO, attest that I was physically present for the iyer portions of the service and evaluated the patient with the resident and I reviewed and discussed the case with the resident and agree with the resident's findings and plans of care as documented above Patient is a 49-year-old incarcerated male with past medical history of schizophrenia who was brought to the ED due to acute encephalopathy, found to have of drooling, urinary incontinence generalized weakness. Patient was postictal at time of presentation. He was noted to have a sodium of 121 on presentation and subsequently admitted to the ICU due to symptomatic hyponatremia. Sodium was rapidly corrected from 121-129 over the course of 3 hours after receiving 2 L NS bolus. Patient was also given Keppra loading dose. However, due to rapid correction, patient was subsequently placed on D5 water and received desmopressin. Sodium level has now normalized at 129. Patient is asymptomatic. He states that he has never had seizures in the past. He also currently denies any shortness of breath, chest pain, lightheadedness, nausea, vomiting, abdominal pain otherwise. Patient does have pressured speech. He is also noted to have ecchymosis scattered on his bilateral knees and shins. Patient does not recall any falls. Suspect that this is secondary to the seizure that he had in the hot correction. Patient reportedly drinks a lot of water and suspected primary cause of patient's hyponatremia is likely due to psychogenic polydipsia. Patient remains on fluid restrictions. Will continue to monitor sodium levels. Patient is noted to have osteolytic lesions on cervical spine CT and a thickened bladder wall on abdominal/pelvic CT concerning for possible malignancy. He will need a urology follow-up outpatient. If patient remains stable in a.m., anticipate discharge within the next 24 hours. Case was discussed with nephrology as well.
[2025-06-28 18:45] LABS: Alanine Aminotransferase 37 U/L (10-49); Albumin, Serum 4.5 gm/dL (3.5-5.0); Albumin/Globulin Ratio 2.5 (1.2-2.2); Alkaline Phosphatase 73 U/L (46-116); Anion Gap 9 (7-16); Aspartate Amino Transferase 145 U/L (0-34); BUN/Creatinine Ratio 7 Ratio (12-20); Bilirubin,Total 0.7 mg/dL (0.3-1.2); Blood Urea Nitrogen 8 mg/dL (9-23); Calcium 8.8 mg/dL (8.3-10.6); Calcium (Corrected) 8.8 mg/dL (8.5-10.1); Carbon Dioxide 25.2 mMol/L (20.0-31.0); Chloride 103 mMol/L (98-107); Creatinine (Component) 1.1 mg/dL (0.6-1.3); Estimated Creatinine Clearance 75.5 mL/min (>60); Globulin 1.8 gm/dL (2.3-3.5); Glucose 99 mg/dL (74-106); Osmolality,Calculated 272 (275-295); Potassium 5.2 mMol/L (3.4-5.1); Sodium 137 mMol/L (136-145); Total Protein 6.3 gm/dL (5.7-8.2); eGFR > 60 See Note
[2025-06-28 22:25] LABS: Alanine Aminotransferase 38 U/L (10-49); Albumin, Serum 4.1 gm/dL (3.5-5.0); Albumin/Globulin Ratio 2.0 (1.2-2.2); Alkaline Phosphatase 77 U/L (46-116); Anion Gap 7 (7-16); Aspartate Amino Transferase 147 U/L (0-34); BUN/Creatinine Ratio 8 Ratio (12-20); Bilirubin,Total 0.6 mg/dL (0.3-1.2); Blood Urea Nitrogen 9 mg/dL (9-23); Calcium 9.3 mg/dL (8.3-10.6); Calcium (Corrected) 9.3 mg/dL (8.5-10.1); Carbon Dioxide 26.4 mMol/L (20.0-31.0); Chloride 106 mMol/L (98-107); Creatinine (Component) 1.1 mg/dL (0.6-1.3); Estimated Creatinine Clearance 75.5 mL/min (>60); Globulin 2.1 gm/dL (2.3-3.5); Glucose 92 mg/dL (74-106); Osmolality,Calculated 276 (275-295); Potassium 4.6 mMol/L (3.4-5.1); Sodium 139 mMol/L (136-145); Total Protein 6.2 gm/dL (5.7-8.2); eGFR > 60 See Note
[2025-06-29] VITALS (7 sets, daily range): BP systolic 113–131; BP diastolic 63–81; PULSE 53–88; RESP 18; TEMP 36.1–36.7; O2SAT 95–100; BMI 22.2
[2025-06-29 01:48] LABS: Alanine Aminotransferase 42 U/L (10-49); Albumin, Serum 4.4 gm/dL (3.5-5.0); Albumin/Globulin Ratio 2.4 (1.2-2.2); Alkaline Phosphatase 73 U/L (46-116); Anion Gap 8 (7-16); Aspartate Amino Transferase 165 U/L (0-34); BUN/Creatinine Ratio 9 Ratio (12-20); Bilirubin,Total 0.7 mg/dL (0.3-1.2); Blood Urea Nitrogen 10 mg/dL (9-23); Calcium 9.1 mg/dL (8.3-10.6); Calcium (Corrected) 9.1 mg/dL (8.5-10.1); Carbon Dioxide 25.6 mMol/L (20.0-31.0); Chloride 105 mMol/L (98-107); Creatinine (Component) 1.1 mg/dL (0.6-1.3); Estimated Creatinine Clearance 74.6 mL/min (>60); Globulin 1.8 gm/dL (2.3-3.5); Glucose 97 mg/dL (74-106); Osmolality,Calculated 276 (275-295); Potassium 4.6 mMol/L (3.4-5.1); Sodium 139 mMol/L (136-145); Total Protein 6.2 gm/dL (5.7-8.2); eGFR > 60 See Note
[2025-06-29 05:43] LABS: Basophils # (Auto) 0.1 Thou/mm3 (0.0-0.2); Basophils % (Auto) 1 % (0-2.5); Eosinophils # (Auto) 0.1 Thou/mm3 (0.0-0.5); Eosinophils % (Auto) 1 % (0-10); Hematocrit 35.9 % (41.0-53.0); Hemoglobin 12.5 g/dL (13.5-16.0); Immature Granulocytes Auto 0.02 Thou/mm3 (0.00-0.00); Lymphocytes # (Auto) 1.3 Thou/mm3 (1.0-4.8); Lymphocytes % (Auto) 16 % (10-50); Mean Corpuscular HGB Conc 34.8 g/dl (31.0-37.0); Mean Corpuscular Hemoglobin 30.7 pg (25.0-35.0); Mean Corpuscular Volume 88 fL (80-100); Monocytes # (Auto) 0.8 Thou/mm3 (0.0-0.8); Monocytes % (Auto) 10 % (0-12); Neutrophils # (Auto) 5.9 Thou/mm3 (1.8-7.7); Neutrophils % (Auto) 72 % (37-80); Nucleated Red Blood Cell # 0.00 Thou/mm3 (0.00-0.00); Nucleated Red Blood Cell % 0 /100 WBC (0); Platelet Count 197 Thou/mm3 (140-440); RDW Standard Deviation 44.9 fL (35.1-43.9); Red Blood Count 4.07 Miln/mm3 (4.50-5.90); White Blood Count 8.2 Thou/mm3 (3.8-10.6)
[2025-06-29 06:12] LABS: Alanine Aminotransferase 43 U/L (10-49); Albumin, Serum 4.4 gm/dL (3.5-5.0); Albumin/Globulin Ratio 2.4 (1.2-2.2); Alkaline Phosphatase 70 U/L (46-116); Anion Gap 9 (7-16); Aspartate Amino Transferase 178 U/L (0-34); BUN/Creatinine Ratio 9 Ratio (12-20); Bilirubin,Total 0.7 mg/dL (0.3-1.2); Blood Urea Nitrogen 9 mg/dL (9-23); Calcium 9.2 mg/dL (8.3-10.6); Calcium (Corrected) 9.2 mg/dL (8.5-10.1); Carbon Dioxide 25.9 mMol/L (20.0-31.0); Chloride 105 mMol/L (98-107); Creatinine (Component) 1.0 mg/dL (0.6-1.3); Estimated Creatinine Clearance 82.1 mL/min (>60); Globulin 1.8 gm/dL (2.3-3.5); Glucose 84 mg/dL (74-106); Magnesium 2.2 mg/dL (1.6-2.6); Osmolality,Calculated 277 (275-295); Phosphorous 3.9 mg/dL (2.4-5.1); Potassium 4.6 mMol/L (3.4-5.1); Sodium 140 mMol/L (136-145); Total Protein 6.2 gm/dL (5.7-8.2); eGFR > 60 See Note
[2025-06-29] MEDS: levETIRAcetam INJ 100 MG/ML VIAL 5ML 1000 MG IVP (08:41)
--- NOTE | 2025-06-29 11:35 | PC.LAC ---
Report called to nurse g[facility] on 06/29/25 at [id number]
--- NOTE | 2025-06-29 12:00 | ESPR_ITS ---
Documentation for date of: 06/29/25 Subjective Subjective Interval history: This patient is a 49-year-old male with past medical history of schizophrenia on fluphenazine was brought in by EMS from senior living( [facility]) on 06/26/25 with chief complaint of altered mental status with drooling and urine incontinence with flaccid weakness in upper extremities and post ictal confusion. Admitted for hyponatremia work up. His baseline AO x 3. Per RN who works in senior living reported that patient fell and they found water on floor. Patient was not responding to painful stimuli was exhibiting right and left upper extremity flaccid weakness associated with drooling and urine incontinence. He was nonverbal and appeared in postictal confusion. Initially, In senior living evaluated and was concern on catatonia however patient continued to remain in postictal confusion therefore he he was brought in to the ED via EMS. RN reported that patient is in single cell due to his mental health issue i.e schizophrenia. Patient takes only 1 medication (fluphenazine) prescribed by his psychiatrist can be contacted on [phone] Dr. Villavicencio. She stated that patient did not had any history of seizures and this is her first episode as well.He had no recent fever or infection in past 48 hours. GCS on arrival was 8. Vitals showed BP 123/73 Pulse 80, oxygen saturation 97% on nasal cannula and blood sugar 117 mg/dL. 06/27/25: Nephrology consulted for symptomatic hyponatremia. In ED, sodium overcorrected from 121 to 129 within 4 hours likely 2/2 2 L of normal saline in ED. D5W was started to decrease sodium. Patient seen examined in ICU, asleep. Given dilute urine and continued correction of sodium this a.m. following NS boluses last night, leading differential polydipsia causing hyponatremia thus inciting seizure. Continue D5W with goal sodium 126 by 8 p.m. tonight and desmopressin 1 mcg twice daily. 06/28/25: Patient seen and examined at bedside in ICU. Patient is feeling well today, no complaints. Denies increased water intake. D5W and desmopressin discontinued due to adequate correction of hyponatremia. From renal standpoint patient is cleared to be discharged with fluid restriction. 06/29/2025: Patient seen and examined in [facility] with present officer at bedside. Patient denies any complaints. Alert and oriented x 3 and denies any weakness, chest pain, SOB and headache. IV fluids were discontinued. Recommend to limit fluid intake to 2L at present. Patient clinically stable for discharge from nephrology standpoint. Exam Vital Signs Temp Pulse Resp BP Pulse Ox O2 Del Method 97.0 F 62 18 122/67 99 Room Air 06/29/25 07:58 06/29/25 07:58 06/29/25 07:58 06/29/25 07:58 06/29/25 07:58 06/29/25 07:58 Narrative Exam GENERAL: AOx3, no acute distress HEENT: mucous membranes moist, bilateral sclera anicteric CARDIOVASCULAR: regular rate and rhythm, S1/S2 present, no murmurs appreciated PULMONARY: clear to auscultation bilaterally, no rales/rhonchi/wheezes ABDOMINAL: soft, non-tender, non-distended, no rebound/guarding, bowel sounds present EXTREMITIES: no peripheral edema SKIN: warm and dry, intact, no rashes NEURO: CN II-XII grossly intact, no focal deficits, alert, following commands Objective Labs 06/29/25 05:14 06/29/25 05:14 Labs: Laboratory Results - last 24 hr 06/28/25 06/28/25 06/29/25 17:17 21:52 01:12 WBC RBC Hgb Hct MCV MCH MCHC RDW Std Deviation Plt Count Neut % (Auto) Lymph % (Auto) [place] % (Auto) Eos % (Auto) Baso % (Auto) Neut # (Auto) Lymph # (Auto) [place] # (Auto) Eos # (Auto) Baso # (Auto) Immature Gran # (Auto) Absolute Nucleated RBC Immature Gran % Nucleated RBC % Sodium 137 139 139 Potassium 5.2 H D 4.6 D 4.6 Chloride 103 106 105 Carbon Dioxide 25.2 26.4 25.6 Anion Gap 9 7 8 BUN 8 L 9 10 Creatinine 1.1 1.1 1.1 Estim Creat Clear Calc 75.5 75.5 74.6 eGFR > 60 > 60 > 60 BUN/Creatinine Ratio 7 L 8 L 9 L Glucose 99 92 97 Calculated Osmolality 272 L 276 276 Calcium 8.8 9.3 9.1 Corrected Calcium 8.8 9.3 9.1 Phosphorus Magnesium Total Bilirubin 0.7 0.6 0.7 AST 145 H 147 H 165 H ALT 37 38 42 Alkaline Phosphatase 73 77 73 Total Protein 6.3 6.2 6.2 Albumin 4.5 4.1 4.4 Globulin 1.8 L 2.1 L 1.8 L Albumin/Globulin Ratio 2.5 H 2.0 2.4 H 06/29/25 05:14 WBC 8.2 RBC 4.07 L Hgb 12.5 L Hct 35.9 L MCV 88 MCH 30.7 MCHC 34.8 RDW Std Deviation 44.9 H Plt Count 197 Neut % (Auto) 72 Lymph % (Auto) 16 [place] % (Auto) 10 Eos % (Auto) 1 Baso % (Auto) 1 Neut # (Auto) 5.9 Lymph # (Auto) 1.3 [place] # (Auto) 0.8 Eos # (Auto) 0.1 Baso # (Auto) 0.1 Immature Gran # (Auto) 0.02 H Absolute Nucleated RBC 0.00 Immature Gran % 0 Nucleated RBC % 0 Sodium 140 Potassium 4.6 Chloride 105 Carbon Dioxide 25.9 Anion Gap 9 BUN 9 Creatinine 1.0 Estim Creat Clear Calc 82.1 eGFR > 60 BUN/Creatinine Ratio 9 L Glucose 84 Calculated Osmolality 277 Calcium 9.2 Corrected Calcium 9.2 Phosphorus 3.9 Magnesium 2.2 Total Bilirubin 0.7 AST 178 H ALT 43 Alkaline Phosphatase 70 Total Protein 6.2 Albumin 4.4 Globulin 1.8 L Albumin/Globulin Ratio 2.4 H ABG Interpretation ABG results: 06/26/25 20:36 ABG pH 7.45 ABG pCO2 37 ABG pO2 69 L ABG HCO3 26 ABG O2 Saturation 95 ABG Base Excess 2 Quality Measures Quality Measures VTE prophylaxis (Heparin SC ) Assessment & Plan Assessment Current Active Medications: Generic Name Dose Route Start Last Admin Trade Name Bobby PRN Reason Stop Dose Admin Acetaminophen 650 mg 06/26/25 23:59 Acetaminophen 325 Mg Tablet PO 07/26/25 23:58 Q6H PRN Fever >100.4 or pain 1-3 Docusate Sodium 100 mg 06/27/25 09:00 06/29/25 08:41 Docusate Sod 100 Mg Capsule PO 07/27/25 08:59 Not Given QDAY LIZET Protocol Heparin Sodium (Porcine) 5,000 unit 06/27/25 09:00 06/29/25 08:41 Heparin Sod Inj 5000 Unit/Ml Vial SC 07/11/25 08:59 Not Given Q12HR LIZET Lorazepam 4 mg 06/27/25 01:24 Lorazepam 2 Mg/Ml Vial IVP 07/02/25 01:23 Q15MIN PRN Breakthrough seizure Non-Formulary Medication 5 mg 06/28/25 11:15 06/28/25 16:56 Fluphenazine Hcl PO 07/28/25 11:14 Not Given On Hold: 06/28/25 14:57 BID LIZET Comment: HOLD PER DR. ALBARADO Plan Evan Byrd 49M pmhx significant for schizophrenia on fluphenazine was brought in by EMS from senior living( [facility]) on 06/26/25 with chief complaint of altered mental status with drooling and urine incontinence with flaccid weakness in upper extremities and post ictal confusion, admitted for symptomatic hyponatremia. #Symptomatic hyponatremia?resolved #Hx of schizophrenia Presented post seizure and further hx on admission unable to be obtained due to postictal state. On fluphenazine. On admission, Na 120. Ulytes Na<15, Cl <20, K<10, Cr<20 Ddx: Given dilute urine and continued correction of sodium this a.m. following NS boluses in ED, leading differential polydipsia causing hyponatremia thus inciting seizure as patient also has very good output after stopping the fluids vs SIADH component 2/2 fluphenazine with polydipsia Plan: - D5W and desmopressin discontinued due to adequate correction of hyponatremia - Cleared to be discharged with 2 L /day fluid restriction - Strict I&Os #Acute encephalopathy #Seizure #Hypotension due to hypovolemia #Pulm Nodule, incidental finding per CT #Mild Hepatitis and Elevated T. 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 Plan of care discussed with Attending Dr. Al Marcial MD PGY 2 Disclaimer: This note was dictated by speech recognition. Minor errors in microbiology manager may be present due to voice recognition software. Attending Provider Attestation/Addendum Patient seen and examined with resident physician Dr. Marcial. Note reviewed, agree with findings and recommendations. Admitted with seizure, hyponatremia. With fluid restriction his sodium improved. Plan for discharge today. Spoke to primary team
--- NOTE | 2025-06-29 13:16 | ESDS_ITS ---
<Statement entered by Beth Muse DO - 06/29/25 15:59> I, Beth Muse DO, attest that I was physically present for the iyer portions of the service and evaluated the patient with the resident and I reviewed and discussed the case with the resident and agree with the resident's findings and plans of care as documented above Planned Discharge Date 06/29/25 DS: Providers Provider Date of admission: 06/26/25 23:59 Primary care physician: Palak Mak([facility])MD Admitting Provider: Radha Miranda MD Attending Provider on Admission: Radha Miranda MD Consults: 06/27/25 01:21 Consult to Nephrology Routine Comment: Symptomatic hyponatremia and Possible ?DI Consulting Provider: Ankit Melendez Attending Provider on DC: Beth Muse DO Discharging Provider: Darron Reyes MD DS: Diagnosis Problem List Completed Was Problem List Reviewed/Reconciled?: Yes Hospital Course Hospital Course Hospital course: 49-year-old male with past medical history of schizophrenia on fluphenazine was brought in by EMS from long term ([facility]) on 06/26/25 with chief complaint of altered mental status, admitted for severe symptomatic hyponatremia with seizures. In ED, sodium 121, treated with normal saline bolus. Patient overcorrected to 129, upgraded to ICU and started to D5W for overcorrection. Patient also treated with desmopressin. Patient showed significant improvement, with return to baseline mental status. 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 Patient medically stable and clear for discharge. Findings of osteolytic lesions on Cspine CT and bladder wall thickening noted on CT abd/pelvis concerning for bladder malignancy were discussed with patient. Explained to patient that he will need further outpatient workup and urology follow up. Diagnoses: #Hypervolemic hypoosmotic hyponatremia, 2/2 primary psychogenic polydipsia #Acute encephalopathy, improving #Seizure, resolved #Rhabdomyolysis #Microcytic normocytic anemia #Pulm Nodule, incidental finding per CT #Bladder wall thickening #Osteolytic lesions over vertebral bodies Discharge plan: - You were admitted to the hospital for symptomatic hyponatremia, your sodium is within normal limits now, we believe it was secondary to increased water intake. - Fluid restriction 1800 cc daily - Please follow up urology regarding thickening of bladder wall due to concern for possibly malignancy. F/u with PCP regarding osteolytic lesions on spine - Please Follow up regarding the finding of 4 mm pulmonary nodule right upper lobe lung nodule repeat CT Scan outpatient in 6 months. - Follow-up with your primary care physician within 1 week - Return to emergency department if your symptoms worsen Discussed plan of care with attending Dr. Muse. Darron Reyes MD PGY-2 Status at Discharge Overall status at discharge: patient is back to baseline Time Spent with Patient Time attestation: Total time spent providing and/or coordinating discharge services: Time spent: Greater than 30 minutes Exam Vital Signs Temp Pulse Resp BP Pulse Ox O2 Del Method 98.0 F 88 18 131/81 H 100 Room Air 06/29/25 12:04 06/29/25 12:04 06/29/25 12:04 06/29/25 12:04 06/29/25 12:04 06/29/25 12:04 Narrative Exam GENERAL: AOx3, no acute distress HEENT: mucous membranes moist, bilateral sclera anicteric CARDIOVASCULAR: regular rate and rhythm, S1/S2 present, no murmurs appreciated PULMONARY: clear to auscultation bilaterally, no rales/rhonchi/wheezes ABDOMINAL: soft, non-tender, non-distended, no rebound/guarding, bowel sounds present EXTREMITIES: no peripheral edema SKIN: warm and dry, intact, no rashes NEURO: CN II-XII grossly intact, no focal deficits, alert, following commands Discharge Plan Plan Patient Disposition: Penitentiary/Court/Law Patient condition on transfer: Stable Care Plan Goals: - You were admitted to the hospital for symptomatic hyponatremia, your sodium is within normal limits now, we believe it was secondary to increased water intake. - Fluid restriction 1800 cc daily - Please follow up urology regarding thickening of bladder wall due to concern for possibly malignancy. F/u with PCP regarding osteolytic lesions on spine - Please Follow up regarding the finding of 4 mm pulmonary nodule right upper lobe lung nodule repeat CT Scan outpatient in 6 months. - Follow-up with your primary care physician within 1 week - Return to emergency department if your symptoms worsen Prescriptions/Referrals Prescriptions/Med Rec: Continued fluphenazine HCl 5 mg tablet 5 mg PO BID [facility]: [facility] [Primary Care Provider] - In 1 week Patient/Caregiver Discharge Instructions Discharge Activity: activity as tolerated Education Materials: Hyponatremia Dc Print Language: Angolan Discharge Order Discharge Orders: Discharge (Routine); Ordered 06/29/25 Ordered By: Darron Reyes Quality Discharge Quality Measures VTE prophylaxis
[2025-07-03 06:31] LABS: Osmolality, Urine* 66 mOsm/kg (50-1200)
== END 2025-06-29 13:05 | DRG 641 ==
LOC: SERX 06-27 00:23 → SERHOLD 06-27 00:55 → S2SX 06-27 03:26 → S3NX 06-28 16:36
PROVIDERS: Student in an Organized Health Care Education/Training Program; Admitting Provider Student in an Organized Health Care Education/Training Program; Emergency Provider Emergency Medicine; PCP Internal Medicine; Visit Provider Student in an Organized Health Care Education/Training Program
DX: E87.1 Hypo-osmolality and hyponatremia (principal); G93.40 Encephalopathy, unspecified; M62.82 Rhabdomyolysis; F20.9 Schizophrenia, unspecified; R91.1 Solitary pulmonary nodule; K75.9 Inflammatory liver disease, unspecified; M89.58 Osteolysis, other site; R56.9 Unspecified convulsions; R63.1 Polydipsia; E86.1 Hypovolemia; I95.89 Other hypotension; M85.80 Other specified disorders of bone density and structure, unspecified site; R32 Unspecified urinary incontinence; F06.1 Catatonic disorder due to known physiological condition; I95.9 Hypotension, unspecified; E87.20 Acidosis, unspecified; D50.9 Iron deficiency anemia, unspecified; D72.829 Elevated white blood cell count, unspecified; Z88.0 Allergy status to penicillin
CPT/HCPCS: 36415; 36600; 51702; 70450; 70486; 71045; 71250; 72125; 74176; 80053; 80069; 80074; 80307; 80320; 80329; 81001; 82010; 82140; 82248; 82436; 82550; 82570; 82803; 83036; 83605; 83690; 83735; 83880; 83935; 84100; 84133; 84145; 84295; 84300; 84443; 84484; 85025; 85652; 86140; 87040; 87081; 87502; 87635; 93005; 93225; 96361; 96374; 96375; 96376; 99285; A4314; J1644; J1953; J2405; J2597; J3475; J7030; J7070; A9270; G0480